=== PATIENT | female | born 1940 | race Caucasian/White ===

== ENCOUNTER → 2023-12-09 09:58 | Outpatient (REF) | payer MEDICARE, OTHER, SELFPAY | LOC: RAD 09:58 | PROVIDERS: ATTENDING PHYSICIAN Nurse Practitioner Family | DX: M25.562 Pain in left knee (principal) | CPT/HCPCS: 73564 ==

== ENCOUNTER 2024-01-04 09:40 | Emergency (ER) | payer MEDICARE, OTHER, SELFPAY ==
[2024-01-04 09:44] VITALS: BP 167/71; BMI 28.3
[2024-01-04 09:45] VITALS: BP 167/71
[2024-01-04 10:00] VITALS: BP 148/63
[2024-01-04 10:01] LABS: % Basophils 0.5 % (0-2); % Eosinophils 0.6 % (0-6); % Immature Granulocytes 0.5 % (0-0.5); % Monocytes 8.4 % (1.7-9.3); Absolute Lymphocytes 1.3 10^3/uL (1.2-3.4); Absolute Monocytes 0.6 10^3/uL (0.1-0.6); Absolute Neutrophils 4.7 10^3/uL (1.4-6.5); Hematocrit 38.9 % (37.0-47.0); Hemoglobin 12.4 g/dL (12.0-16.0); Mean Corp Hgb Conc. 31.9 g/dL (33.0-37.0); Mean Corpuscular Hgb 24.9 pg (27.0-31.0); Mean Corpuscular Volume 78.1 fL (81.0-99.0); Mean Platelet Volume 9.2 fL (7.4-10.4); Nucleated Red Blood Cells % 0 %; Platelet Count 295 10^3/uL (130-400); Red Blood Cell Count 4.98 10^6/uL (4.20-5.40); Red Cell Dist. Width 18.3 % (11.5-14.5); White Blood Cell Count 6.6 10^3/uL (4.8-10.8)
[2024-01-04 10:16] LABS: ALT (SGPT) 14 U/L (0-35); AST (SGOT) 17 U/L (14-36); Albumin 4.5 g/dl (3.5-5.0); Alkaline Phosphatase 48 U/L (38-126); Blood Urea Nitrogen 14 mg/dl (7-17); Calcium 10.2 mg/dl (8.4-10.2); Carbon Dioxide 26 mmol/L (22-30); Chloride 101 mmol/L (98-107); Estimated Creatinine Clearance 57 ml/min; Glucose 166 mg/dl (70-99); Potassium 4.3 mmol/L (3.5-5.1); Sodium 138 mmol/L (135-145); Total Bilirubin 0.5 mg/dl (0.2-1.3); eGFR > 60.00
--- NOTE | 2024-01-04 10:27 | ED.GENMED ---
History of Present Illness
General
Chief Complaint: Weakness
Source: patient
Exam Limitations: none
Time Seen by Provider: 01/04/24 10:05
Travel History
Have you had any contact with someone who has COVID-19?: No
Do you have any symptoms of coronavirus? Fever > 100 degrees, chills, cough, shortness of breath, sore throat, loss of taste or smell, muscle aches, or headache?: No
History of Present Illness
History of Present Illness:
83-year-old female lives by herself presents via EMS with onset of generalized weakness this morning. She went to bed last evening feeling normal. She has history of insulin-dependent diabetes. She has a history of Li's palsy. She states both
legs were not working well this morning. She was forced to use a walker which she usually does not have to. She states she may have a history of prior TIA. She denies chest pain headache abdominal pain nausea or vomiting. She states she does
feel dry. No urinary symptoms. No cough or breath. No other complaints at this time
Past History
Past History
ED Past Medical History: CVA, HTN, NIDDM and Other (Li's palsy)
ED Past Surgical History: Gynecological (Hysterectomy)
Social History
Tobacco: Non-smoker
Alcohol: None
Drug: None
Living: alone
Family History
Family History: Other (reviewed and noncontributory)
Phy Exam
Physical Exam
Physical Exam:
General: Well-appearing female no acute respiratory distress
HEENT: Normocephalic atraumatic mucosa slightly dry neck is supple
Heart: Regular rate and rhythm no murmurs
Lungs: Clear no wheeze or rales
Abdomen: Soft nontender nondistended
Extremities: No cyanosis or edema
Neurologic exam: Alert and oriented x 3 finger-nose [id number] intact. Visual hirsch intact. 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
This is not new per the patient. No dysarthria or aphasia
Course
Orders/Labs/Results
Orders:
Orders
01/04/24 09:50
Electrocardiogram (*1) Urgent
Reason for Study: Other
Other Reason for Exam: Possible Stroke
EKG- Treatment ONCE
01/04/24 09:51
Complete Blood Count/With Diff Urgent
Comprehensive Metabolic Panel Urgent
01/04/24 10:25
0.9% Sodium Chloride 1000 ml [Nss] 1,000 ml IV BOLUS
01/04/24 11:11
Urinalysis Reflex To Culture Urgent
Date Specimen was Collected: 01/04/24
Time Specimen was Collected: 11:10
Urine Microscopic Reflex Cult Urgent
Urine Culture Urgent
CHRIS Source: U
Specimen Description:
Date Specimen was Collected: 01/04/24
Time Specimen was Collected: 11:10
01/04/24 12:50
Case Management Consult ONCE
Case Management Consult: VN/Home Care
PT Consult [Pt Eval And Treat] Urgent
Activity Level: Ambulate
01/04/24 12:51
CefTRIAXone [Rocephin] 1,000 mg IV NOW STA
Abnormal Lab Results
01/04/24 01/04/24
09:51 11:11
MCV 78.1 L fL
(81.0-99.0)
MCH 24.9 L pg
(27.0-31.0)
MCHC 31.9 L g/dL
(33.0-37.0)
RDW 18.3 H %
(11.5-14.5)
Lymphocytes % 19.0 L %
(20.5-51.1)
Glucose 166 H mg/dl
(70-99)
Urine Nitrite (Reflex) Positive A
(Negative)
Leukocyte Esterase Rfl 1+ A
(Negative)
Urine Bacteria (Reflex) Moderate A
(Negative)
Urine Glucose Trace A
(Negative)
01/04/24 09:51
01/04/24 09:51
Vital Signs
Initial and Last Documented VS:
Initial Vital Signs
Temp Pulse Resp BP Pulse Ox
97.5 F 88 18 167/71 98
01/04/24 09:44 01/04/24 09:44 01/04/24 09:44 01/04/24 09:44 01/04/24 09:44
Last Documented Vital Signs
Temp Pulse Resp BP Pulse Ox
97.5 F 86 18 163/81 97
01/04/24 09:44 01/04/24 14:45 01/04/24 14:45 01/04/24 13:06 01/04/24 13:30
MDM/Problems Addressed
Differential Diagnosis Includes:
Patient has generalized weakness without unilateral findings on exam. Do not suspect CVA. Consider electrolyte abnormality versus anemia versus hyperglycemia. Will check labs. Fluids ordered EKG ordered. Urinalysis pending
*Critical Care Note
Total Time (30-74mins, 75-104mins- exclusive of procedures): Not Applicable
Update Note
Update Note:
Patient reevaluated multiple times. She is ambulatory to the bathroom on her own. Seen by physical therapy and case management. Stable for discharge home she was given a dose of Rocephin IV for UTI and will be started on Omnicef at home.
Visiting nurses will set up.
ED Attending Note
-
Portions of this chart may have been created with voice recognition software.� Occasional wrong word or��sound alike� substitutions may have occurred due to the inherent limitations of voice recognition software.
Discharge Plan
Departure
Patient Disposition: Home (Routine Discharge)
Date of Disposition: 01/04/24
Time of Disposition: 14:52
Patient with high blood pressure during this ER visit?: No
Discharge Problem:
Acute UTI
Instructions: Generalized Weakness (DC)
Prescriptions:
New
cefdinir 300 mg capsule
300 mg PO BID Qty: 14 0RF
No Action
metformin 1,000 MG tablet
1,000 mg PO BID
amlodipine 10 MG tablet
10 mg PO DAILY 0RF
aspirin 81 MG tablet,chewable
81 mg PO DAILY 0RF
hydroxyurea 500 mg capsule
500 mg PO MOTUWETHFRSA
valsartan 320 mg tablet
320 mg PO DAILY
rosuvastatin 20 mg tablet
20 mg PO DAILY
metoprolol succinate 100 MG tablet extended release 24 hr
100 mg PO DAILY
insulin glargine [Basaglar KwikPen U-100 Insulin] 100 unit/mL (3 mL) Insulin Pen
15 unit SC HS
Fiasp FlexTouch U-100 Insulin 100 unit/mL (3 mL) Insulin Pen
6 unit SC AC
calcium carbonate [Calcium 500] 500 mg calcium (1,250 mg) Tablet
500 mg PO DAILY
magnesium oxide 500 mg magnesium Tablet
1,000 mg PO DAILY
Referrals:
Max Choudhury MD [Family Provider] -
Interventions
Interventions:
*Risk Screen - Suicide Last Done: 01/04/24 09:44
*General Assessment Last Done: 01/04/24 09:44
*Neglect/Abuse Screening Last Done: 01/04/24 09:44
ED- Fall Risk Assessment Last Done: 01/04/24 09:44
*ED COVID-19 Vaccine History Last Done: 01/04/24 09:44
ED- Cardiac Assessment Last Done: 01/04/24 09:44
ED- Neurological Assessment Last Done: 01/04/24 09:44
ED- Pulmonary Assessment Last Done: 01/04/24 09:44
Discharge Date and Time
Print Language: DANISH
[2024-01-04] MEDS: NSS 1000 IV (10:42)
[2024-01-04 11:12] VITALS: BP 174/75
[2024-01-04 11:22] LABS: Urine Albumin Negative (Neg - Trace); Urine Bilirubin Negative (Negative); Urine Character Clear (Clear); Urine Color Yellow; Urine Glucose Trace (Negative); Urine Ketone Negative (Negative); Urine Leukocyte 1+ (Negative); Urine Nitrite Positive (Negative); Urine Occult Blood Negative (Negative); Urine Urobilinogen Negative (Neg - 1+); Urine pH 6.5 (5.0-9.0)
[2024-01-04 12:22] LABS: Urine Red Blood Cell 0-2 /HPF (0-2)
[2024-01-04 12:23] LABS: Urine Bacteria Moderate (Negative)
[2024-01-04] MEDS: ROCEPHIN 1000 MG IV (13:05)
[2024-01-04 13:06] VITALS: BP 163/81
--- NOTE | 2024-01-04 14:32 | CM ---
Patient seen at bedside with physician. Patient friend also at bedside. Per friend she will escort patient home and get her settled. Patient reviewed PAC data and requested referral to [facility]. CM updated liaison and await review for acceptance.
Patient lives in a private home, one story. Patient has a walker, no home O2 and is still driving. [facility] PCP is Dr. Choudhury and [facility] in [place] is the pharmacy of choice. CM will continue to follow for discharge planning needs.
Plan; home with [facility]; pending acceptance.
--- NOTE | 2024-01-04 16:37 | VNURNOTE ---
[facility] referral completed in [facility] after review of chart.
Call to patient to discuss and no answer.
== END 2024-01-04 15:15 | disposition home or self-care (01) ==
LOC: EMR 09:40
PROVIDERS: Physician Assistant; EMERGENCY PHYSICIAN Emergency Medicine; FAMILY PHYSICIAN Internal Medicine Geriatric Medicine
DX: N39.0 Urinary tract infection, site not specified (principal); R53.1 Weakness; I10 Essential (primary) hypertension; E11.9 Type 2 diabetes mellitus without complications; G51.0 Bell's palsy; Z86.73 Personal history of transient ischemic attack (TIA), and cerebral infarction without residual deficits; Z79.4 Long term (current) use of insulin; Z79.82 Long term (current) use of aspirin
CPT/HCPCS: 96374; 96361; 99284; 80053; 81003; 81015; 85025; 87077; 87086; 87186; 93005

== ENCOUNTER 2024-01-07 14:27 | Inpatient (IN) | payer MEDICARE, OTHER, SELFPAY ==
[2024-01-06 09:26] VITALS: BP 166/89
[2024-01-06 10:48] VITALS: BMI 28.0
[2024-01-06 10:54] LABS: % Basophils 0.6 % (0-2); % Immature Granulocytes 0.2 % (0-0.5); % Lymphocytes 17.7 % (20.5-51.1); % Monocytes 6.7 % (1.7-9.3); % Neutrophils 73.8 % (42.2-75.2); Absolute Basophils 0.1 10^3/uL (0-0.2); Absolute Eosinophils 0.1 10^3/uL (0-0.7); Absolute Lymphocytes 1.7 10^3/uL (1.2-3.4); Absolute Monocytes 0.6 10^3/uL (0.1-0.6); Absolute Neutrophils 6.9 10^3/uL (1.4-6.5); Hematocrit 38.5 % (37.0-47.0); Mean Corp Hgb Conc. 31.2 g/dL (33.0-37.0); Mean Corpuscular Volume 80.2 fL (81.0-99.0); Mean Platelet Volume 9.6 fL (7.4-10.4); Nucleated Red Blood Cells % 0 %; Platelet Count 332 10^3/uL (130-400); Red Cell Dist. Width 18.4 % (11.5-14.5); White Blood Cell Count 9.3 10^3/uL (4.8-10.8)
[2024-01-06 11:06] LABS: ALT (SGPT) 16 U/L (0-35); AST (SGOT) 23 U/L (14-36); Albumin 4.5 g/dl (3.5-5.0); Alkaline Phosphatase 49 U/L (38-126); Blood Urea Nitrogen 15 mg/dl (7-17); Calcium 10.1 mg/dl (8.4-10.2); Carbon Dioxide 22 mmol/L (22-30); Chloride 101 mmol/L (98-107); Estimated Creatinine Clearance 58 ml/min; Glucose 124 mg/dl (70-99); Potassium 4.1 mmol/L (3.5-5.1); Sodium 135 mmol/L (135-145); Total Bilirubin 0.6 mg/dl (0.2-1.3); Total Protein 6.9 g/dl (6.3-8.2); eGFR > 60.00
[2024-01-06 11:12] LABS: Lactic Acid 2.1 mmol/L (0.7-2.0)
[2024-01-06 11:43] VITALS: BP 151/63
--- NOTE | 2024-01-06 12:29 | ED.GENMED ---
History of Present Illness
General
Chief Complaint: Weakness
Time Seen by Provider: 01/06/24 10:38
Travel History
Have you had any contact with someone who has COVID-19?: No
Do you have any symptoms of coronavirus? Fever > 100 degrees, chills, cough, shortness of breath, sore throat, loss of taste or smell, muscle aches, or headache?: No
History of Present Illness
History of Present Illness:
HPI: Patient presents with increasing gait dysfunction. She was seen here in our ED 2 days ago. Her symptoms have been worsening over the past 4 weeks. Even though she has a walker, she has been doing poorly at home. She lives by herself.
EXAM:
GENERAL: Well appearing in no distress
HEENT: Moist oral mucosa
CARDIOVASCULAR: No murmurs, normal heart rate, regular rhythm, No chest wall tenderness
PULMONARY: No respiratory distress, breath sounds are clear and equal
ABDOMEN: Soft with no peritoneal signs, no tenderness
NEUROLOGIC: Very good strength in the upper extremities and the right lower extremity. There is 4+ out of 5 strength in the left lower extremity however she does appear to have some coordination to with [id number] testing. There is left facial
droop which is chronic related to history of Li's palsy
PSYCHIATRIC: Appropriate mental status, normal insight and judgement
EXTREMITIES: Nontender, no edema, moves all extremities equally
SKIN: No rash, no lesions
TIME OF INITIAL ENCOUNTER: 11 AM
NUMBER AND COMPLEXITY OF PROBLEMS ADDRESSED AT THE ENCOUNTER
� Chronic conditions affecting care: Has had Li's palsy
� Acute Exacerbation and/or Progression of Chronic Illness: This is an acute problem
� Differential Diagnosis includes: CVA, progressive functional decline, failure to thrive, anemia
AMOUNT AND/OR COMPLEXITY OF DATA TO BE REVIEWED AND ANALYZED
� I performed an independent evaluation of and my interpretation is:
EKG:
CT: Small old lacunar infarcts noted but no acute abnormality
X-rays:
Laboratory Studies: White count normal, hemoglobin 12.0, chemistries unremarkable other than blood sugar of 124
Other:
� Review of other/old records: X-ray from the other day of the left knee was relatively unremarkable
� Clinical information was obtained by an independent historian:
� Prescriptions/Medications Considered but not given:
� Further testing considered but not performed:
RISK OF COMPLICATIONS AND/OR MORBIDITY OR MORTALITY OF PATIENT MANAGEMENT
� Social determinants of health affecting care: Lives by herself at home
� Discussion with other providers: I spoke to physical therapy�they evaluated patient and recommends patient be at a rehab facility. I then spoke to care management�Linda states she cannot place from the ER. Hospitalist for
admission
� Escalation of care including admission/observation vs risk of discharge considered: The patient has been doing poorly as an outpatient. She is already been in the ED once a couple days ago.
Past History
Past History
ED Past Medical History: CVA, HTN, NIDDM and Other (Li's palsy)
ED Past Surgical History: Gynecological (Hysterectomy)
Social History
Tobacco: Non-smoker
Alcohol: None
Drug: None
Living: alone
Family History
Family History: Other (reviewed and noncontributory)
Phy Exam
Physical Exam
Physical Exam:
See HPI
Course
Orders/Labs/Results
Orders:
Orders
01/06/24 10:46
Complete Blood Count/With Diff Urgent
Comprehensive Metabolic Panel Urgent
Lactate Level [Lactic Acid] Q4H
Blood Culture Q30M
CHRIS Source: Blood/Venous
Specimen Description:
01/06/24 11:14
CT Head W/o Iv Contrast Urgent
Comment:
Reason For Exam: LLE weak, gait dysfunc
PT Consult [Pt Eval And Treat] Urgent
Activity Level: Ambulate
01/06/24 11:15
Blood Culture Q30M
CHRIS Source: Blood/Venous
Specimen Description:
01/06/24 12:31
Electrocardiogram (*1) Urgent
Reason for Study: TIA/Stroke
EKG- Treatment ONCE
01/06/24 13:47
Case Management Consult ONCE
Case Management Consult: Discharge Planning
01/06/24 14:45
Lactate Level [Lactic Acid] Q4H
Abnormal Lab Results
01/06/24
10:46
MCV 80.2 L fL
(81.0-99.0)
MCH 25.0 L pg
(27.0-31.0)
MCHC 31.2 L g/dL
(33.0-37.0)
RDW 18.4 H %
(11.5-14.5)
Absolute Neuts (auto) 6.9 H 10^3/uL
(1.4-6.5)
Lymphocytes % 17.7 L %
(20.5-51.1)
Glucose 124 H mg/dl
(70-99)
Lactic Acid 2.1 H mmol/L
(0.7-2.0)
01/06/24 10:46
01/06/24 10:46
Vital Signs
Initial and Last Documented VS:
Initial Vital Signs
Temp Pulse Resp BP Pulse Ox
98.4 F 92 16 166/89 98
01/06/24 09:26 01/06/24 09:26 01/06/24 09:26 01/06/24 09:26 01/06/24 09:26
Last Documented Vital Signs
Temp Pulse Resp BP Pulse Ox
98.4 F 86 16 151/63 99
01/06/24 09:26 01/06/24 11:43 01/06/24 11:43 01/06/24 11:43 01/06/24 11:44
*Critical Care Note
Total Time (30-74mins, 75-104mins- exclusive of procedures): Not Applicable
ED Attending Note
-
Portions of this chart may have been created with voice recognition software.� Occasional wrong word or��sound alike� substitutions may have occurred due to the inherent limitations of voice recognition software.
Discharge Plan
Departure
Prescriptions:
No Action
metformin 1,000 MG tablet
1,000 mg PO BID
amlodipine 10 MG tablet
10 mg PO DAILY 0RF
aspirin 81 MG tablet,chewable
81 mg PO DAILY 0RF
hydroxyurea 500 mg capsule
500 mg PO MOTUWETHFRSA
valsartan 320 mg tablet
320 mg PO DAILY
rosuvastatin 20 mg tablet
20 mg PO DAILY
metoprolol succinate 100 MG tablet extended release 24 hr
100 mg PO DAILY
insulin glargine [Basaglar KwikPen U-100 Insulin] 100 unit/mL (3 mL) Insulin Pen
15 unit SC HS
Fiasp FlexTouch U-100 Insulin 100 unit/mL (3 mL) Insulin Pen
6 unit SC AC
calcium carbonate [Calcium 500] 500 mg calcium (1,250 mg) Tablet
500 mg PO DAILY
magnesium oxide 500 mg magnesium Tablet
1,000 mg PO DAILY
cefdinir 300 mg capsule
300 mg PO BID Qty: 14 0RF
Referrals:
Max Choudhury MD [Family Provider] -
Interventions
Interventions:
*Risk Screen - Suicide Last Done: 01/06/24 10:48
*General Assessment Last Done: 01/06/24 10:48
*Neglect/Abuse Screening Last Done: 01/06/24 10:48
*ED COVID-19 Vaccine History Last Done: 01/06/24 09:26
ED- Cardiac Assessment Last Done: 01/06/24 11:44
ED- Neurological Assessment Last Done: 01/06/24 11:44
ED- Pulmonary Assessment Last Done: 01/06/24 11:44
Discharge Date and Time
Print Language: BULGARIAN
[2024-01-06 12:55] VITALS: BP 160/69; BP 166/73; PULSE 97; O2SAT 97
--- NOTE | 2024-01-06 14:15 | CM ---
CM reviewed medical records. CM spoke with [facility] entry level sales representative and confirmed patient would be eligible for [employer] Medicare Waiver. CM is unable to place from the emergency room at this time. CM updated ED physician.
--- NOTE | 2024-01-06 14:19 | HPS.HSE ---
Addendum entered and electronically signed by Simon Marks MD 01/06/24 15:54:
I saw and examined the patient.
The CHAIR UPHOLSTERER or PA's note was reviewed and I agree with the note.
Comment:
83 years old female presented with gait dysfunction. She described left lower extremity weakness. This started 4 weeks ago after experiencing left knee pain. She was given a steroid course and physical therapy but she did not do physical therapy.
Her pain subsided but she continued to have weakness. She had a fall last night and hit her back. She also complains of intermittent weakness of left upper extremity. Sometimes tingling in both hands because of the neuropathy. She never had
images of her cervical spine. No fever or chills. She was recently diagnosed with urinary tract infection was given cefdinir treatment after an ER visit for weakness.
Physical Exam:
General: Well-appearing female no acute respiratory distress
HEENT: Normocephalic atraumatic mucosa slightly dry neck is supple
Heart: Regular rate and rhythm no murmurs
Lungs: Clear no wheeze or rales
Abdomen: Soft nontender nondistended
Extremities: No cyanosis or edema
Neurologic exam: Alert and oriented x 3 finger-nose acif-zh-sqta intact. Visual hirsch intact. 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
This is not new per the patient. No dysarthria or aphasia
Psych: calm
# Left-sided weakness mostly left lower extremity
Rule out stroke/spinal pathology
Will do MRI of the head and cervical spine since patient reports intermittent weakness of left upper extremity, duration of symptoms around 4-weeks no specific trauma or injury when it started.
No fever. No leukocytosis.
Head scan showed no acute intracranial abnormalities/small bilateral old lacunar infarcts.
Check vitamin B12.
Check inflammatory markers
NIH stroke protocol
Check lipid panel
Continue to control blood pressure, management of diabetes. Continue with aspirin and statin.
PT/OT
Will follow-up with imaging studies results
# Recent UTI. Positive lactic acidosis
Patient is not septic or toxic. Could be dehydrated. Agree with empiric antibiotic and blood culture
# Diabetes, check hemoglobin A1c. Avoid hypoglycemia. Continue with insulin sign scale.
#Primary hypertension
# Hyperlipidemia
Total time spent to see the patient, examine the patient on the floor, review data and lab results, discuss treatment plan with patient, ER doctor, nursing staff around 75 minutes
Original Note:
Family Physician
-
Family Physician: Max Chouhdury
Chief Complaint
-
Left lower extremities pain
History of Present Illness
83-year-old with past medical history for hypertension, hyperlipidemia, diabetes, CVA presented to us with left knee pain, left lower extremity is weakness for past 4 weeks. she woke up with left knee pain. she had x ray done with no acute finding.
she was placed on prednisone and recommended. she finished prednisone. she couldn't do PT as she cannot walk from parking LOT. last night she fell on her back due to left LE weakness. she stated she has not strength in her leg. she was evaluated in
ER on 01/03. prescribed cefdinir for UTI and sent home. Patient is still with trouble walking and weakness. Patient denied any headache, dizziness, syncopal episode. Patient denied any fever, chills, chest pain, short of breath. Patient denied
abdominal pain, nausea, vomiting, diarrhea. Patient denied dysuria, hematuria.
Head CT negative for acute findings
Patient was evaluated by PT in the ER. Recommended acute rehab. Admitting for further management
Medical History
Past Medical History
Past Medical History: Reports Other
Additional Past Medical History:
Type 2 diabetes
Diabetic peripheral neuropathy
History was palsy
Hypertension
Hyperlipidemia
TIA
Past Surgical History: Reports Other
Social History
Tobacco: Non-smoker
Alcohol: None
Drug: None
Personal: Single
Living: Alone
Family History
Family History: Not pertinent
Allergies / Home Medications
Allergies reflects when Allergies were last updated in [facility].
Home Medications with original date entered in [facility]
Allergy/Medication List:
Allergies
Allergy/AdvReac Type Severity Reaction Status Date / Time
No Known Allergies Allergy Verified 01/06/24 09:28
Home Medications
metformin 1,000 mg tablet 1,000 mg PO BID Diabetes 06/03/19
amlodipine 10 mg tablet 10 mg PO DAILY 06/07/19
aspirin 81 mg chewable tablet 81 mg PO DAILY 06/07/19
hydroxyurea 500 mg capsule 500 mg PO MOTUWETHFRSA 05/01/22
metoprolol succinate 100 mg tablet,extended release 24 hr 100 mg PO DAILY Blood pressure 05/01/22
rosuvastatin 20 mg tablet 20 mg PO DAILY High cholesterol 05/01/22
valsartan 320 mg tablet 320 mg PO DAILY Blood pressure 05/01/22
calcium carbonate 500 mg PO DAILY 01/04/24
cefdinir 300 mg capsule 300 mg PO BID #14 caps 01/04/24
insulin aspart (niacinamide)(U-100) 100 unit/mL(3 mL) subcutaneous pen (Fiasp FlexTouch U-100 Insulin) 6 unit SC AC 01/04/24
insulin glargine 100 unit/mL (3 mL) subcutaneous pen (Basaglar KwikPen U-100 Insulin) 15 unit SC HS 01/04/24
magnesium oxide 1,000 mg PO DAILY 01/04/24
Review of Systems
-
Constitutional: Reports No Symptoms
EENT: Reports No Symptoms
Respiratory: Reports No Symptoms
Cardiac: Reports No Symptoms
Abdomen/GI: Reports No Symptoms
: Reports No Symptoms
Musculoskeletal: Reports Other (Left knee pain and left lower extremities weakness)
Skin: Reports No Symptoms
Neurological: Reports No Symptoms
Endocrine: Reports No Symptoms
Hematologic/Lymphatic: Reports No Symptoms
Psych: Reports No Symptoms
Physical Exam
Vital Signs
Vital Signs
Temp Pulse Resp BP Pulse Ox
98.4 F 86 16 151/63 99
01/06/24 09:26 01/06/24 11:43 01/06/24 11:43 01/06/24 11:43 01/06/24 11:44
Physical Exam
General: Well Developed, Well Nourished and No Apparent Distress
HEENT: NormoCephalic, Moist mucous membranes and Atraumatic
Respiratory: Clear
Cardiac: S1/S2 and Regular Rhythm; No Murmur or Rub
GI: Soft, Non Tender, Non Distended and Normal Bowel Sounds; No Organomegaly
Rectal: Deferred by Provider
Musculoskeletal: No Clubbing, No Cyanosis and No Edema
Skin: No Rash
Neuro: AO x 3 and Nonfocal/grossly intact
Psych: Calm
Laboratory Results
-
01/06/24 10:46
01/06/24 10:46
Laboratory Results
Lactic Acid 2.1 mmol/L (0.7-2.0) H 01/06/24 10:46
Total Bilirubin 0.6 mg/dl (0.2-1.3) 01/06/24 10:46
AST 23 U/L (14-36) 01/06/24 10:46
ALT 16 U/L (0-35) 01/06/24 10:46
Alkaline Phosphatase 49 U/L (38-126) 01/06/24 10:46
Data Reviewed
-
CT Scan: Report Reviewed by me
Lab Data: Labs Reviewed by me
Impression/Plan
-
# Gait dysfunction/left knee pain, left lower extremity weakness
-CT head negative
-Left knee x-ray with impression of No acute osseous or articular abnormalities. Questionable small suprapatellar joint effusion.Mild loss of joint space within the medial tibiofemoral compartment.Scattered vascular calcifications.
-PT/OT consulted
-obtain MRI of head and cervical spine
# Essential hypertension
-Norvasc continued
-Metoprolol continued
-Valsartan continued
# Hyperlipidemia
-Statin continued
# Type 2 diabetes
-Sliding scale
-6 units aspart with meals
-15 units Lantus at bedtime
-Metformin continued
# Urinary tract infection
-On cefdinir
-urine culture with gram negative bacilli.
# DVT prophylaxis
-Lovenox subcu
# CODE STATUS
DNR
--- NOTE | 2024-01-06 16:25 | CM ---
CM met with patient. COnfirmed demographics. LINDSAY letter given.
Patient lives alone and stated that she is otherwise independent. She has been driving herself. Patient's son lives 5 hours away, but she does visit often. Patient is active with her PCP. Patient has a history placement at [facility]. CM advised
patient that she was eligible for [employer] Waiver program. She would be agreeable to [facility] and [facility]. CM sent referrals via [facility].
[2024-01-06 17:34] VITALS: BMI 28.7
[2024-01-06 17:40] VITALS: BP 186/75
[2024-01-06 17:55] LABS: Glucose - Point of Care 146 mg/dl (70-99)
[2024-01-06] MEDS: NOVOLOG FLEXPEN-LOW RESISTANCE SC (18:18)
[2024-01-06] MEDS: LOVENOX 40 MG SC (18:18)
[2024-01-06] MEDS: OMNICEF 300 MG PO (21:00)
[2024-01-06 21:44] LABS: Glucose - Point of Care 241 mg/dl (70-99)
[2024-01-06] MEDS: LANTUS 0.149999999999999994 UNITS SC (22:50)
[2024-01-06 23:00] VITALS: BP 144/70
[2024-01-07 07:00] VITALS: BP 163/78
[2024-01-07 07:28] LABS: Hematocrit 33.7 % (37.0-47.0); Mean Corp Hgb Conc. 32.6 g/dL (33.0-37.0); Mean Corpuscular Hgb 25.3 pg (27.0-31.0); Mean Corpuscular Volume 77.5 fL (81.0-99.0); Mean Platelet Volume 9.6 fL (7.4-10.4); Platelet Count 291 10^3/uL (130-400); Red Blood Cell Count 4.35 10^6/uL (4.20-5.40); Red Cell Dist. Width 18.2 % (11.5-14.5); White Blood Cell Count 7.6 10^3/uL (4.8-10.8)
[2024-01-07 07:35] LABS: Glucose - Point of Care 161 mg/dl (70-99)
[2024-01-07 07:44] LABS: Blood Urea Nitrogen 11 mg/dl (7-17); Calcium 8.7 mg/dl (8.4-10.2); Carbon Dioxide 23 mmol/L (22-30); Chloride 102 mmol/L (98-107); Estimated Creatinine Clearance 67 ml/min; Glucose 153 mg/dl (70-99); Sodium 134 mmol/L (135-145); eGFR > 60.00
[2024-01-07] MEDS: NOVOLOG FLEXPEN-LOW RESISTANCE 1 UNITS SC (09:19)
[2024-01-07] MEDS: DIOVAN 320 MG PO (09:19)
[2024-01-07] MEDS: OMNICEF 300 MG PO ×2 (09:19→19:52)
[2024-01-07] MEDS: NORVASC 10 MG PO (09:20)
[2024-01-07] MEDS: CRESTOR 20 MG PO (09:20)
[2024-01-07] MEDS: GLUCOPHAGE 1000 MG PO ×2 (09:20→17:49)
[2024-01-07] MEDS: MAGNESIUM OXIDE 1000 MG PO (09:21)
[2024-01-07] MEDS: LIDOCAINE 4% PATCH TOPICAL (09:21)
[2024-01-07] MEDS: LOW STRENGTH ASPIRIN 81 MG PO (09:21)
[2024-01-07] MEDS: TOPROL XL 100 MG PO (09:22)
[2024-01-07] MEDS: HYDREA 500 MG PO (09:40)
[2024-01-07 11:45] LABS: Glucose - Point of Care 256 mg/dl (70-99)
[2024-01-07 12:11] LABS: Glycohemoglobin (HgbA1c) 8.4 % (4.0-5.6)
[2024-01-07] MEDS: NOVOLOG FLEXPEN-LOW RESISTANCE 3 UNITS SC (12:23)
--- NOTE | 2024-01-07 12:25 | W.PN.HOSP.TC ---
Addendum entered and electronically signed by Simon Marks MD 01/07/24 15:09:
Addendum
MRI is reviewed with radiologist
d/w neurology, help appreciated
Add Plavix, c/w statin
check Lipid in am, vitamin B12
Reconsult PT/OT
Consult speech
NIH Stroke
End
Original Note:
Today's Communication/Plan
-
.
Assessment / Plan
Assessment / Plan
Physical Exam:
General: Well-appearing female no acute respiratory distress
HEENT: Normocephalic atraumatic mucosa slightly dry neck is supple
Heart: Regular rate and rhythm no murmurs
Lungs: Clear no wheeze or rales
Abdomen: Soft nontender nondistended
Extremities: No cyanosis or edema
Neurologic exam: Alert and oriented x 3 finger-nose [id number]-[id number] intact. Visual hirsch intact. 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
This is not new per the patient. No dysarthria or aphasia
Psych: calm
# Left-sided weakness mostly left lower extremity
She reports limited range of movement of RUE
Nothing wrong with LUE
No pain in left leg
No chest pain
She reports her Li's palsy weakness is worse today
On exam: no changes from yesterday
Rule out stroke/spinal pathology
MRI of the head and cervical spine since patient reports intermittent weakness of left upper extremity, duration of symptoms around 4-weeks no specific trauma or injury when it started.
No fever. No leukocytosis.
Head scan showed no acute intracranial abnormalities/small bilateral old lacunar infarcts.
Check vitamin B12.
NIH stroke protocol if positive MRI for acute stroke
Check lipid panel
Continue to control blood pressure, management of diabetes. Continue with aspirin and statin.
PT/OT
Will follow-up with imaging studies results
# Recent UTI. Positive lactic acidosis
Patient is not septic or toxic. Could be dehydrated. Agree with empiric antibiotic and blood culture
# Hyponatremia, mild
Hx of Chronic hyponatremia
# Recent UTI
c/w Cefdinir, susceptibility is reviewed.
# Diabetes, check hemoglobin A1c. Avoid hypoglycemia. Continue with insulin sign scale.
#Primary hypertension
Poorly controlled
will add PRN one time Nifedipine
# Hyperlipidemia
Check lipid panel
#Bundle branch block, right
# DVT prophylaxis
-Lovenox subcu
# CODE STATUS
DNR
Total time spent to see the patient, examine the patient on the floor, review data and lab results, discuss treatment plan with patient, nursing staff around 55 minutes
Anticipated Discharge: 24 - 48 hours
Subjective/Interval History
-
Date of Service: January 07, 2024
She reports limited range of movement of RUE
Nothing wrong with LUE
No pain in left leg
No chest pain
She reports her Blell's palsy weakness is worse today
Objective Data
-
Labs:
Laboratory Results
01/07/24
07:02
WBC 7.6
Hgb 11.0 L
Hct 33.7 L
Plt Count 291
Sodium 134 L
Potassium 4.0
Chloride 102
Carbon Dioxide 23
BUN 11
Creatinine 0.6
Glucose 153 H
Calcium 8.7
Vital Signs:
Vital Signs
Temp Pulse Resp BP Pulse Ox
98.2 F 77 18 163/78 99
01/07/24 07:00 01/07/24 09:22 01/07/24 07:00 01/07/24 09:22 01/07/24 07:00
I&O
01/06/24 01/07/24 01/08/24
06:59 06:59 06:59
Output Total 480 / 480
Balance -480 / -480
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
[2024-01-07 14:13] LABS: Erythrocyte Sed Rate 15 mm/hour (0-20)
[2024-01-07 14:57] LABS: HDL Cholesterol 33 mg/dl; LDL Cholesterol, Calculated 20 mg/dl; Total Cholesterol 79 mg/dl (50-199); Triglyceride 133 mg/dl (10-149); Very Low Density Lipoprotein 26 mg/dl (0-30)
[2024-01-07 15:00] VITALS: BP 137/70
[2024-01-07 15:03] LABS: TSH Reflex To Free T4 2.59 uIU/ml (0.47-4.68)
[2024-01-07 15:07] LABS: Ferritin 8.6 ng/ml (11.1-264.0)
[2024-01-07 15:39] LABS: Folate > 20.0 ng/ml (2.76-20); Vitamin B12 858 pg/ml (239-931)
--- NOTE | 2024-01-07 16:12 | PTOTSP ---
Addendum entered and electronically signed by ST Dennise 01/07/24 16:14:
Pt also with mild dysarthria.
Original Note:
ST Acute Care Evaluation
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 Pt also presents with mild oropharyngeal dysphagia.
Recommendations:
- Continue with REGULAR SOLIDS and THIN LIQUIDS with meds as tolerated.
- Aspiration precautions: SINGLE SIPS ONLY; small bites; use tongue sweep for L buccal clearance; alternate liquids and solids; reduce distractions; avoid speaking while eating/drinking.
- ADULT DAY CARE WORKER will continue to follow while in house to ensure pt is consuming the safest and least restrictive diet consistencies, as well as determine whether or not pt would benefit from an instrumental swallow study prior to discharge.
- Pt would benefit from ADULT DAY CARE WORKER services upon d/c at the HOME HEALTH level of care.
[2024-01-07] MEDS: PLAVIX 75 MG PO (16:25)
[2024-01-07 17:18] LABS: Glucose - Point of Care 231 mg/dl (70-99)
[2024-01-07] MEDS: LOVENOX 40 MG SC (17:49)
[2024-01-07] MEDS: NOVOLOG FLEXPEN-LOW RESISTANCE 2 UNITS SC (17:49)
[2024-01-07] MEDS: NOVOLOG FLEXPEN 6 UNITS SC (17:50)
[2024-01-07 19:37] VITALS: BP 149/74
[2024-01-07 21:11] LABS: Glucose - Point of Care 178 mg/dl (70-99)
[2024-01-07] MEDS: LANTUS 0.149999999999999994 UNITS SC (23:00)
[2024-01-07 23:05] VITALS: BP 140/71
[2024-01-08 03:14] VITALS: BP 152/75
[2024-01-08 07:16] LABS: Hematocrit 35.3 % (37.0-47.0); Hemoglobin 11.4 g/dL (12.0-16.0); Mean Corp Hgb Conc. 32.3 g/dL (33.0-37.0); Mean Corpuscular Hgb 25.3 pg (27.0-31.0); Mean Corpuscular Volume 78.3 fL (81.0-99.0); Mean Platelet Volume 9.7 fL (7.4-10.4); Platelet Count 326 10^3/uL (130-400); Red Blood Cell Count 4.51 10^6/uL (4.20-5.40); Red Cell Dist. Width 18.2 % (11.5-14.5); White Blood Cell Count 7.1 10^3/uL (4.8-10.8)
[2024-01-08 07:43] LABS: Blood Urea Nitrogen 13 mg/dl (7-17); Calcium 9.4 mg/dl (8.4-10.2); Carbon Dioxide 22 mmol/L (22-30); Chloride 102 mmol/L (98-107); Estimated Creatinine Clearance 57 ml/min; Glucose 184 mg/dl (70-99); Potassium 4.3 mmol/L (3.5-5.1); Sodium 134 mmol/L (135-145); eGFR > 60.00
[2024-01-08 07:45] LABS: Glucose - Point of Care 190 mg/dl (70-99)
[2024-01-08 08:00] VITALS: BP 178/88; BMI 28.8
[2024-01-08] MEDS: DIOVAN 320 MG PO (08:22)
[2024-01-08] MEDS: LOW STRENGTH ASPIRIN 81 MG PO (08:23)
[2024-01-08] MEDS: PLAVIX 75 MG PO (08:23)
[2024-01-08] MEDS: CRESTOR 20 MG PO (08:23)
[2024-01-08] MEDS: OMNICEF 300 MG PO ×2 (08:23→21:00)
[2024-01-08] MEDS: MAGNESIUM OXIDE 1000 MG PO (08:23)
[2024-01-08] MEDS: TOPROL XL 100 MG PO (08:23)
[2024-01-08] MEDS: GLUCOPHAGE 1000 MG PO ×2 (08:24→17:47)
[2024-01-08] MEDS: NOVOLOG FLEXPEN-LOW RESISTANCE 1 UNITS SC (08:24)
[2024-01-08] MEDS: LIDOCAINE 4% PATCH TOPICAL ×2 (08:24→16:22)
[2024-01-08] MEDS: NOVOLOG FLEXPEN 6 UNITS SC ×3 (08:24→17:46)
[2024-01-08] MEDS: NORVASC 10 MG PO (08:25)
--- NOTE | 2024-01-08 10:03 | W.PN.HOSP.TC ---
Today's Communication/Plan
-
.
Assessment / Plan
Assessment / Plan
Physical Exam:
General: Well-appearing female no acute respiratory distress
HEENT: Normocephalic atraumatic mucosa slightly dry neck is supple
Heart: Regular rate and rhythm no murmurs
Lungs: Clear no wheeze or rales
Abdomen: Soft nontender nondistended
Extremities: No cyanosis or edema
Neurologic exam: Alert and oriented x 3 finger-nose tcep-xy-lwrn intact. Visual hirsch intact. 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
This is not new per the patient. No dysarthria or aphasia
Psych: calm
# Acute/subacute right paramedian pontine ischemic stroke. Left-sided weakness mostly left lower extremity
She denies worsening weakness. She feels her speech is better today.
c/w NIH stroke
Check echo
c/w Crestor, dual anti-plt therapy for 21 days then c/w Plavix. She was on aspirin
LDL is 20, no need to change her Crestor dose
c/w PT/OT
Goal of normotensive now
Neurology mentioned in note ( Recheck MRA of head to determine if the demonstrated cavernous sinus protrusion has significantly changed in size), will d/w Dr Lucio. Will order is he wants it as Inpt.
Appreciate neurology help
# Recent UTI. Uncomplicated. Will dc Cefdinir after today ( finished 5 days course). Positive lactic acidosis
Patient is not septic or toxic. Blood culture no growth
# Lactic acidosis, likely related to dehydration.
# Hyponatremia, mild
Hx of Chronic hyponatremia
# Diabetes, poorly controlled
Hemoglobin A1c 8.4 . Avoid hypoglycemia. Continue with insulin sign scale. Increase dose of Lantus.
#Primary hypertension
Poorly controlled
will add PRN hydralazine. Plan to stop Amlodipine, start on Nifedipine
# Hyperlipidemia
Check lipid panel
#Bundle branch block, right
# DVT prophylaxis
-Lovenox subcu
# CODE STATUS
DNR
Total time spent to see the patient, examine the patient on the floor, review data and lab results, discuss treatment plan with patient, nursing staff around 57 minutes
Anticipated Discharge: 24 - 48 hours
Subjective/Interval History
-
Date of Service: January 08, 2024
She feels well this morning
No worsening weakness on left side
No chest pain, no sob
Objective Data
-
Labs:
Laboratory Results
01/08/24
06:39
WBC 7.1
Hgb 11.4 L
Hct 35.3 L
Plt Count 326
Sodium 134 L
Potassium 4.3
Chloride 102
Carbon Dioxide 22
BUN 13
Creatinine 0.7
Glucose 184 H
Calcium 9.4
Vital Signs:
Vital Signs
Temp Pulse Resp BP Pulse Ox
98.4 F 94 20 178/88 96
01/08/24 08:00 01/08/24 08:25 01/08/24 08:00 01/08/24 08:25 01/08/24 08:00
I&O
01/07/24 01/08/24 01/09/24
06:59 06:59 06:59
Intake Total 900 / 900
Output Total 480 / 480 1050 / 1050
Balance -480 / -480 -150 / -150
[2024-01-08 11:00] VITALS: BP 131/64
[2024-01-08 13:34] LABS: Glucose - Point of Care 137 mg/dl (70-99)
[2024-01-08] MEDS: NOVOLOG FLEXPEN-LOW RESISTANCE SC (13:35)
[2024-01-08 15:00] VITALS: BP 135/110
[2024-01-08 17:11] LABS: Glucose - Point of Care 250 mg/dl (70-99)
[2024-01-08] MEDS: LOVENOX 40 MG SC (17:47)
[2024-01-08] MEDS: NOVOLOG FLEXPEN-LOW RESISTANCE 3 UNITS SC (17:47)
--- NOTE | 2024-01-08 17:49 | PTOTSP ---
ST Re-Evaluation/Follow-Up
Pt continues to present with mild oropharyngeal dysphagia, mild dysarthria, and mild cognitive linguistic impairment.
Recommendations:
- Continue with skilled RN POOL services for oropharyngeal dysphagia, dysarthria, and cognitive linguistic impairment while in the hospital.
- Continue with aspiration precautions: HOB upright, small single bites/sips, slow intake rate.
- Continue with skilled RN POOL services at d/c at SNF level of care.
[2024-01-08 19:32] VITALS: BP 149/63
[2024-01-08 22:11] LABS: Glucose - Point of Care 175 mg/dl (70-99)
[2024-01-08] MEDS: LANTUS 0.220000000000000001 UNITS SC (22:11)
[2024-01-08 23:33] VITALS: BP 148/68
[2024-01-09 03:04] VITALS: BP 127/67
[2024-01-09 07:05] VITALS: BP 147/74
--- NOTE | 2024-01-09 08:18 | W.PN.NEURO.1 ---
Addendum entered and electronically signed by Lonnie Ortega MD 01/09/24 14:41:
I saw and evaluate the patient I reviewed note by Halle Ibanez agree the findings the following comments:
83-year-old woman presenting to the hospital with onset in the past couple of weeks of abrupt change in gait as well as some mild left-sided weakness.
MRI brain shows severe ischemic small vessel disease throughout both hemispheres of the brain as well as an acute stroke in the right moon.
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
Recommendations-
DAPT therapy for 21 days and then stop aspirin and continue clopidogrel
Continue rosuvastatin 20 mg daily
PT OT speech therapy evaluations
Continue to treat diabetes
Minimize sedating medications
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
Original Note:
Documented by User: Halle Dutta NP 01/09/24 12:29
Today's Communication / Plan
-
.
Neuro Assessment/Plan
Assessment
IMPRESSIONS/RECOMMENDATIONS:
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
With MRI findings of acute/subacute right paramedian pontine ischemic lesion. Etiology likely small vessel disease. Additionally demonstrated was leukomalacia with a prior one 1 cm area of chronic hemorrhagic change, unchanged from 2019.
MRI of cervical spine failed to demonstrate clinically significant findings.
Redding palsy on the left is of no consequence.
Patient was not a candidate for either tenecteplase or intra-arterial thrombectomy due to timeframe greater than 24 hours
Plan
Continue patient's routine aspirin 81 mg daily
Add clopidogrel 75 mg daily during the next 21 days, then replacement of the aspirin with clopidogrel routinely after 21 days.
LDL goal <70. LDL is 20. Continue home rosuvastatin 20mg daily.
Goal of normotension as the onset of symptomatology is undoubtedly greater than 24 hours
Goal of normoglycemia, hbA1c is 8.4.
NIHSS and neurological checks per unit guidelines.
Provide a stroke education packet.
PT/OT/ST evaluations.
DVT prophylaxis
Follow-up with Neurology as an outpatient, may see the [employer] SCIENCES DEPARTMENT CHAIR or one of the physicians.
Subjective/Objective
Subjective Data
Date of Service: January 09, 2024
No acute events overnight. Patient reports ongoing LLE weakness, RUE limited ROM due to shoulder discomfort, gait dysfunction. She denies any headache, dizziness, speech/swallow difficulty, numbness, nausea, chest pain, palpitations, and shortness
of breath.
Objective Data
Vital Signs
Temp Pulse Resp BP Pulse Ox
97.7 F 70 17 127/67 94
01/09/24 03:04 01/09/24 03:04 01/09/24 03:04 01/09/24 03:04 01/09/24 03:04
Lab Results
01/08/24 06:39
01/08/24 06:39
Sodium 134 mmol/L (135-145) L 01/08/24 06:39
Potassium 4.3 mmol/L (3.5-5.1) 01/08/24 06:39
BUN 13 mg/dl (7-17) 01/08/24 06:39
Glucose 184 mg/dl (70-99) H 01/08/24 06:39
Calcium 9.4 mg/dl (8.4-10.2) 01/08/24 06:39
LDL Cholesterol, Calc 20 mg/dl 01/07/24 07:02
Vitamin B12 858 pg/ml (239-931) 01/07/24 07:02
Patient Allergies
No Known Allergies Allergy (Verified 01/06/24 09:28)
LDL Level: <70, continue statin
Review of Systems
-
History Source: Patient
EENT: Negative Blurry Vision, Decreased Vision or Swallowing Difficulty
Respiratory: Negative Cough or Trouble Breathing
Cardiac: Negative Chest Pain or Palpitations
Abdomen/GI: Negative Nausea
Neuro: Weakness and Ataxia; Negative Dizzy, Headache, Numbness, Tremors or Speech Problem
Physical Exam
-
General: Well Developed, Well Nourished and No Apparent Distress
Eyes: No Ptosis and PERRLA
HEENT: Normocephalic and Atraumatic
Neck: Full Range of Motion
GI: Non-distended
Extremities: No Clubbing, No Cyanosis and No Edema
Psych: Unremarkable
Extended Neurological Exam
Mood & Affect: Mood Unremarkable and Affect Unremarkable
Attention Span & Concentration: Awake, Alert and Interactive
Memory: Unremarkable (AAOx3) and Able to Recall
Tremor: Hand Tremor Absent and Head Tremor Absent
Involuntary Movement: None
Speech: Quality Unremarkable, Quantity Unremarkable and Rate of Production Unremarkable
Cranial Nerve II: Left Eye: Pupillary Reactivity Unremarkable, Pupillary Size Unremarkable and Visual Perez Intact
Cranial Nerve II: Right Eye: Pupillary Reactivity Unremarkable, Pupillary Size Unremarkable and Visual Perez Intact
Cranial Nerves III, IV, : Extraocular Movement: Extraocular Movement Full in all Directions
Cranial Nerve V: Facial Sensation: Intact to Light Touch
Cranial Nerve VII: Facial Symmetry: Reduced (slight left facial drooping)
Cranial Nerve VIII: Hearing: Unremarkable Hearing to Normal Conversational Volume
Cranial Nerves IX, X: Palate Movement: Palate Elevation Symmetric
Cranial Nerve XI: Shoulder Shrug: Unremarkable
Cranial Nerve XII: Tongue Protusion: Midline
Muscle Strength, Overall: Reduced on Left (LLE 5-/5, RUE limited ROM full distal strength)
Muscle Bulk & Tone: Bulk Unremarkable and Tone Unremarkable
Pronator Drift: No Drift in Upper Extremities and No Drift in Lower Extremities
Touch Sensation: Double Simultaneous Stimulation Unremarkable
Coordination: Ktnqcj-[id number] Testing Unremarkable
Babinski Sign: Absent Bilaterally
Modified [place] Score (MRS)
-
Modified [place] Scale (mRS): Moderate disability. Requires some help, able to walk unassisted.
Score: 3
Data Reviewed
-
CT Head: Report Reviewed and Image Reviewed
MRI Head: Report Reviewed and Image Reviewed
MRI Cervical Spine: Report Reviewed and Image Reviewed
MRA Head: Report Reviewed and Image Reviewed
Labs: Report Reviewed
Lipid Profile: Report Reviewed
HgbA1C: Report Reviewed
Reviewed with: Physician and Patient
Medications
-
Active Medications
Generic Name Dose Route Start Last Admin
Trade Name Freq PRN Reason Stop Dose Admin
Acetaminophen 650 mg 01/06/24 17:24
Acetaminophen 325 Mg Tablet PO 02/03/24 17:23
Q4HPRN PRN
mild pain/RANDALL/temp> 100.4F
Aspirin 81 mg 01/07/24 08:00 01/09/24 08:36
Aspirin 81 Mg Chewable Tablet PO 02/04/24 07:59 81 mg
DAILY BIRDIE Administration
Bisacodyl 10 mg 01/06/24 17:24
Bisacodyl 10 Mg Rectal Suppository RECTAL 02/03/24 17:23
[id number] PRN
constipation
Cefdinir 300 mg 01/06/24 20:00 01/09/24 08:37
Cefdinir 300 Mg Capsule PO 300 mg
BID BIRDIE Administration
Clopidogrel Bisulfate 75 mg 01/08/24 08:00 01/09/24 08:38
Clopidogrel 75 Mg Tablet PO 02/05/24 07:59 75 mg
DAILY BIRDIE Administration
Dextrose 12.5 grams 01/06/24 17:24
Dextrose 50% (0.5 Grams/Ml) 50 Ml Syringe IV 02/03/24 17:23
[id number] PRN
hypoglycemia
Protocol
Enoxaparin Sodium 40 mg 01/06/24 18:00 01/08/24 17:47
Enoxaparin Sodium 40 Mg/0.4 Ml Syringe SC 02/03/24 17:59 40 mg
QPM BIRDIE Administration
Glucagon 1 mg 01/06/24 17:24
Glucagon 1 Mg Vial IM 02/03/24 17:23
PRN PRN
hypoglycemia
Protocol
Hydralazine HCl 5 mg 01/08/24 10:16
Hydralazine 10 Mg Tablet PO 02/05/24 10:15
TIDPRN PRN
SBP more than 160
Hydroxyurea 500 mg 01/07/24 08:00 01/09/24 08:43
Hydroxyurea 500 Mg Capsule PO 02/04/24 07:59 500 mg
MoTuWeThFrSa@0800 BIRDIE Administration
Insulin Glargine 22 units/ 0.22 mls @ 0 mls/hr 01/08/24 10:19 01/08/24 22:11
Device SC 02/03/24 21:59 0.22 mls
HS BIRDIE Administration
As Directed
Insulin Aspart 6 units 01/07/24 18:00 01/09/24 12:08
Insulin Aspart (100 Units/Ml) 3 Ml Flexpen SC 02/04/24 17:59 6 units
AC BIRDIE Administration
Insulin Aspart 0 units 01/06/24 17:24 01/09/24 12:08
Insulin Aspart Low Resistance 300 Units/3 Ml Pen.Injctr SC 02/03/24 17:23 2 units
AC BIRDIE Administration
Protocol
Lidocaine 1 patch 01/07/24 08:00 01/09/24 08:38
Lidocaine 4% Topical Patch TOPICAL 02/04/24 07:59 1 patch
DAILY BIRDIE Administration
Magnesium Oxide 1,000 mg 01/07/24 08:00 01/09/24 08:36
Magnesium Oxide 500 Mg Tablet PO 02/04/24 07:59 1,000 mg
DAILY BIRDIE Administration
Metformin HCl 1,000 mg 01/07/24 08:00 01/09/24 08:37
Metformin 1000 Mg Regular Release Tablet PO 02/04/24 07:59 1,000 mg
BID@0800,1700 BIRDIE Administration
Metoprolol Succinate 100 mg 01/07/24 08:00 01/09/24 08:37
Metoprolol 100 Mg Extended Release Tablet PO 02/04/24 07:59 100 mg
DAILY BIRDIE Administration
Nifedipine 60 mg 01/09/24 08:00 01/09/24 08:35
Nifedipine 60 Mg Extended Release Tablet PO 02/06/24 07:59 60 mg
DAILY BIRDIE Administration
Polyethylene Glycol 17 grams 01/06/24 17:24
Polyethylene Glycol Powder 17 Grams Packet PO 02/03/24 17:23
DAILYPRN PRN
constipation
Rosuvastatin Calcium 20 mg 01/07/24 08:00 01/09/24 08:36
Rosuvastatin (Crestor) 20 Mg Tablet PO 02/04/24 07:59 20 mg
DAILY BIRDIE Administration
Senna/Docusate Sodium 1 tablet 01/06/24 17:24
Docusate W/Senna (Kathie-Colace) Tablet PO 02/03/24 17:23
BIDPRN PRN
constipation
Sodium Chloride 0 flush 01/06/24 18:00
Sodium Chloride 0.9% (Flush) Syringe IV 02/03/24 17:59
PER PROTOCOL BIRDIE
Valsartan 320 mg 01/07/24 08:00 01/09/24 08:35
Valsartan 80 Mg Tablet PO 02/04/24 07:59 320 mg
DAILY BIRDIE Administration
Home Medications
�Medication �Instructions �Recorded
metformin 1,000 mg tablet 1,000 mg PO BID Diabetes 06/03/19
hydroxyurea 500 mg capsule 500 mg PO MOTUWETHFRSA hematology 05/01/22
metoprolol succinate 100 mg 100 mg PO DAILY Blood pressure 05/01/22
tablet,extended release 24 hr
rosuvastatin 20 mg tablet 20 mg PO DAILY High cholesterol 05/01/22
valsartan 320 mg tablet 320 mg PO DAILY Blood pressure 05/01/22
calcium carbonate 500 mg PO DAILY Supplement 01/04/24
insulin aspart 6 unit SC AC Diabetes 01/04/24
(niacinamide)(U-100) 100 unit/mL(3
mL) subcutaneous pen (Fiasp
FlexTouch U-100 Insulin)
insulin glargine 100 unit/mL (3 15 unit SC HS Diabetes 01/04/24
mL) subcutaneous pen (Basaglar
KwikPen U-100 Insulin)
magnesium oxide 1,000 mg PO DAILY Electrolyte 01/04/24
Repletion
amlodipine 10 mg tablet 10 mg PO DAILY Blood Pressure 01/06/24
aspirin 81 mg chewable tablet 81 mg PO DAILY Blood Clot 01/06/24
Prevention/Tx
cefdinir 300 mg capsule 300 mg PO BID Infection 01/06/24
NIH Stroke Score
Subsequent NIH Scale
Date of Subsequent NIH Scale: 01/09/24
Time of Subsequent NIH Scale: 10:30
NIH Stroke Score
Level of Consciousness: 0 - Alert
LOC Questions: 0-Answers both correctly
LOC Commands: 0-Performs both correctly
Best Horizontal Gaze: 0-Normal
Visual Perez: 0=Normal, no visual loss
Facial Palsy: 1=Minor paralysis
Motor - Right Arm: 0=No drift 10 seconds
Motor - Left Arm: 0=No drift 10 seconds
Motor - Right Le-No drift 5 seconds
Motor - Left Le-No drift 5 seconds
Limb Ataxia: 0-Absent
Sensation: 0-Normal
Best Language: 0-No aphasia
Dysarthria: 0-Normal
Extinction and Inattention: 0-No abnormality
Total Score:: 1
Modified [place] (mRS) Score
Modified [place] Scale (mRS): Moderate disability. Requires some help, able to walk unassisted.
Score: 3

Documented by User: Lonnie Ortega MD 01/09/24 14:39
Modified [place] Score (MRS)
-
Score: 3
NIH Stroke Score
NIH Stroke Score
Total Score:: 1
Modified [place] (mRS) Score
Score: 3
[2024-01-09 08:22] LABS: Glucose - Point of Care 160 mg/dl (70-99)
[2024-01-09] MEDS: DIOVAN 320 MG PO (08:35)
[2024-01-09] MEDS: PROCARDIA XL (EXTENDED RELEASE) 60 MG PO (08:35)
[2024-01-09] MEDS: MAGNESIUM OXIDE 1000 MG PO (08:36)
[2024-01-09] MEDS: CRESTOR 20 MG PO (08:36)
[2024-01-09] MEDS: LOW STRENGTH ASPIRIN 81 MG PO (08:36)
[2024-01-09] MEDS: TOPROL XL 100 MG PO (08:37)
[2024-01-09] MEDS: GLUCOPHAGE 1000 MG PO ×2 (08:37→17:17)
[2024-01-09] MEDS: OMNICEF 300 MG PO ×2 (08:37→22:02)
[2024-01-09] MEDS: PLAVIX 75 MG PO (08:38)
[2024-01-09] MEDS: LIDOCAINE 4% PATCH 1 PATCH TOPICAL (08:38)
[2024-01-09] MEDS: NOVOLOG FLEXPEN 6 UNITS SC ×3 (08:39→17:19)
[2024-01-09] MEDS: NOVOLOG FLEXPEN-LOW RESISTANCE 1 UNITS SC ×2 (08:40→17:20)
[2024-01-09] MEDS: HYDREA 500 MG PO (08:43)
[2024-01-09 10:49] LABS: % Basophils 0.8 % (0-2); % Eosinophils 0.8 % (0-6); % Immature Granulocytes 0.4 % (0-0.5); % Lymphocytes 28.8 % (20.5-51.1); % Monocytes 8.2 % (1.7-9.3); Absolute Basophils 0.1 10^3/uL (0-0.2); Absolute Eosinophils 0.1 10^3/uL (0-0.7); Absolute Lymphocytes 2.2 10^3/uL (1.2-3.4); Absolute Monocytes 0.6 10^3/uL (0.1-0.6); Absolute Neutrophils 4.7 10^3/uL (1.4-6.5); Hematocrit 39.4 % (37.0-47.0); Hemoglobin 12.4 g/dL (12.0-16.0); Mean Corp Hgb Conc. 31.5 g/dL (33.0-37.0); Mean Corpuscular Hgb 25.4 pg (27.0-31.0); Mean Corpuscular Volume 80.6 fL (81.0-99.0); Mean Platelet Volume 9.8 fL (7.4-10.4); Nucleated Red Blood Cells % 0 %; Platelet Count 385 10^3/uL (130-400); Red Blood Cell Count 4.89 10^6/uL (4.20-5.40); Red Cell Dist. Width 18.6 % (11.5-14.5); White Blood Cell Count 7.7 10^3/uL (4.8-10.8)
[2024-01-09 11:03] LABS: Blood Urea Nitrogen 15 mg/dl (7-17); Calcium 9.7 mg/dl (8.4-10.2); Carbon Dioxide 27 mmol/L (22-30); Chloride 97 mmol/L (98-107); Estimated Creatinine Clearance 50 ml/min; Glucose 250 mg/dl (70-99); Potassium 4.6 mmol/L (3.5-5.1); Sodium 135 mmol/L (135-145); eGFR > 60.00
[2024-01-09 11:10] VITALS: BP 117/56
[2024-01-09 12:02] LABS: Glucose - Point of Care 216 mg/dl (70-99)
[2024-01-09] MEDS: NOVOLOG FLEXPEN-LOW RESISTANCE 2 UNITS SC (12:08)
--- NOTE | 2024-01-09 13:35 | W.PN.HOSP.TC ---
Today's Communication/Plan
-
Monitor vital signs see plan
Awaiting SNF placement
Continue with aspirin and Plavix for total 21 days and then discontinue aspirin and continue with Plavix routinely
Assessment / Plan
Assessment / Plan
Physical Exam:
General: Well-appearing female no acute respiratory distress
HEENT: Normocephalic atraumatic mucosa slightly dry neck is supple
Heart: Regular rate and rhythm no murmurs
Lungs: Clear no wheeze or rales
Abdomen: Soft nontender nondistended
Extremities: No cyanosis or edema
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 No dysarthria or aphasia
Psych: calm
# Acute/subacute right paramedian pontine ischemic stroke. Left-sided weakness mostly left lower extremity
She denies worsening weakness. She feels her speech is better today.
c/w NIH stroke
echo without vegetation
c/w Crestor, dual anti-plt therapy for 21 days then c/w Plavix. She was on aspirin
LDL is 20, no need to change her Crestor dose
c/w PT/OT
Goal of normotensive now
Neurology mentioned in note ( Recheck MRA of head to determine if the demonstrated cavernous sinus protrusion has significantly changed in size), will d/w Dr Lucio. Will order is he wants it as Inpt. MRA noted, no significant abnormality. Patient
will follow with neurology outpatient
Appreciate neurology help
# Recent UTI. Uncomplicated. Will dc Cefdinir after today ( finished 5 days course). Positive lactic acidosis
Patient is not septic or toxic. Blood culture no growth
# Lactic acidosis, likely related to dehydration.
# Hyponatremia, mild
Hx of Chronic hyponatremia
# Diabetes, poorly controlled
Hemoglobin A1c 8.4 . Avoid hypoglycemia. Continue with insulin sign scale. Increase dose of Lantus.
#Primary hypertension
Poorly controlled
will add PRN hydralazine. Plan to stop Amlodipine, start on Nifedipine
# Hyperlipidemia
Check lipid panel
#Bundle branch block, right
# DVT prophylaxis
-Lovenox subcu
# CODE STATUS
DNR
Total time spent to see the patient, examine the patient on the floor, review data and lab results, discuss treatment plan with patient, nursing staff around 52 minutes
Anticipated Discharge: Within 24 hours
Subjective/Interval History
-
Date of Service: January 09, 2024
denies pain
Objective Data
-
Labs:
Laboratory Results
01/09/24
10:38
WBC 7.7
Hgb 12.4
Hct 39.4
Plt Count 385
Sodium 135
Potassium 4.6
Chloride 97 L
Carbon Dioxide 27
BUN 15
Creatinine 0.8
Glucose 250 H
Calcium 9.7
Vital Signs:
Vital Signs
Temp Pulse Resp BP Pulse Ox
97.4 F 78 18 147/74 97
01/09/24 07:05 01/09/24 07:05 01/09/24 07:05 01/09/24 07:05 01/09/24 11:45
I&O
01/08/24 01/09/24 01/10/24
06:59 06:59 06:59
Intake Total 900 / 900 780 / 780
Output Total 1050 / 1050 950 / 950
Balance -150 / -150 -170 / -170
--- NOTE | 2024-01-09 15:15 | CM ---
Addendum entered by Frida Silvestre 01/09/24 16:36:
Patient has selected [place] [place] referral sent to [facility] skilled.
Original Note:
Chart reviewed and porter sample case is waiting on updated PT/OT notes, referrals were sent to [facility], and both facilities have denied patient. executive manager will review with patient and family alternative skilled options.
Plan; Skilled placement.
[2024-01-09 16:37] VITALS: BP 122/54
[2024-01-09] MEDS: LOVENOX 40 MG SC (17:17)
[2024-01-09 17:20] LABS: Glucose - Point of Care 151 mg/dl (70-99)
[2024-01-09 19:44] VITALS: BP 140/65
[2024-01-09 21:48] LABS: Glucose - Point of Care 204 mg/dl (70-99)
[2024-01-09] MEDS: LANTUS 0.220000000000000001 UNITS SC (22:03)
[2024-01-09 22:29] VITALS: BP 160/74
[2024-01-10] VITALS (9 sets, daily range): BP systolic 108–187; BP diastolic 51–89; PULSE 92–95; O2SAT 96
[2024-01-10] MEDS: APRESOLINE 5 MG PO (03:32)
[2024-01-10 07:07] LABS: % Basophils 0.5 % (0-2); % Eosinophils 0.8 % (0-6); % Immature Granulocytes 0.3 % (0-0.5); % Lymphocytes 22.4 % (20.5-51.1); % Monocytes 8.9 % (1.7-9.3); % Neutrophils 67.1 % (42.2-75.2); Absolute Basophils 0.1 10^3/uL (0-0.2); Absolute Eosinophils 0.1 10^3/uL (0-0.7); Absolute Lymphocytes 2.1 10^3/uL (1.2-3.4); Absolute Monocytes 0.8 10^3/uL (0.1-0.6); Absolute Neutrophils 6.3 10^3/uL (1.4-6.5); Hematocrit 34.2 % (37.0-47.0); Mean Corp Hgb Conc. 32.2 g/dL (33.0-37.0); Mean Corpuscular Hgb 25.2 pg (27.0-31.0); Mean Corpuscular Volume 78.4 fL (81.0-99.0); Mean Platelet Volume 9.9 fL (7.4-10.4); Nucleated Red Blood Cells % 0 %; Platelet Count 342 10^3/uL (130-400); Red Blood Cell Count 4.36 10^6/uL (4.20-5.40); Red Cell Dist. Width 18.8 % (11.5-14.5); White Blood Cell Count 9.4 10^3/uL (4.8-10.8)
[2024-01-10 07:29] LABS: Blood Urea Nitrogen 20 mg/dl (7-17); Calcium 9.5 mg/dl (8.4-10.2); Carbon Dioxide 23 mmol/L (22-30); Chloride 98 mmol/L (98-107); Estimated Creatinine Clearance 50 ml/min; Glucose 130 mg/dl (70-99); Potassium 4.4 mmol/L (3.5-5.1); Sodium 131 mmol/L (135-145); eGFR > 60.00
[2024-01-10 07:32] LABS: Glucose - Point of Care 178 mg/dl (70-99)
--- NOTE | 2024-01-10 08:55 | CM ---
computer programming manager reviewed patient's chart and met with patient and patient is agreeable to [facility], referral sent to [facility] yesterday and message left for Keara in admissions at [facility] to check on a bed for patient.
Plan; Await determination from [facility].
[2024-01-10] MEDS: LIDOCAINE 4% PATCH TOPICAL (09:40)
[2024-01-10] MEDS: DIOVAN 320 MG PO (09:40)
[2024-01-10] MEDS: PROCARDIA XL (EXTENDED RELEASE) 60 MG PO (09:41)
[2024-01-10] MEDS: TOPROL XL 100 MG PO (09:41)
[2024-01-10] MEDS: MAGNESIUM OXIDE 1000 MG PO (09:42)
[2024-01-10] MEDS: PLAVIX 75 MG PO (09:42)
[2024-01-10] MEDS: LOW STRENGTH ASPIRIN 81 MG PO (09:42)
[2024-01-10] MEDS: OMNICEF 300 MG PO (09:43)
[2024-01-10] MEDS: NOVOLOG FLEXPEN-LOW RESISTANCE 7 UNITS SC (09:43)
[2024-01-10] MEDS: NOVOLOG FLEXPEN 6 UNITS SC ×3 (09:44→18:30)
[2024-01-10] MEDS: CRESTOR 20 MG PO (09:47)
[2024-01-10] MEDS: GLUCOPHAGE 1000 MG PO ×2 (09:47→17:48)
[2024-01-10] MEDS: HYDREA 500 MG PO (09:51)
[2024-01-10 11:35] LABS: Glucose - Point of Care 308 mg/dl (70-99)
--- NOTE | 2024-01-10 12:31 | W.PN.HOSP.TC ---
Today's Communication/Plan
-
Monitor vital signs and see plan
Continue with aspirin and Plavix
Pending placement
Monitor sodium
Assessment / Plan
Assessment / Plan
Physical Exam:
General: Well-appearing female no acute respiratory distress
HEENT: Normocephalic atraumatic mucosa slightly dry neck is supple
Heart: Regular rate and rhythm no murmurs
Lungs: Clear no wheeze or rales
Abdomen: Soft nontender nondistended
Extremities: No cyanosis or edema
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 No dysarthria or aphasia
Psych: calm
# Acute/subacute right paramedian pontine ischemic stroke. Left-sided weakness mostly left lower extremity
She denies worsening weakness. She feels her speech is better today.
c/w NIH stroke
echo without vegetation
c/w Crestor, dual anti-plt therapy for 21 days then c/w Plavix. She was on aspirin
LDL is 20, no need to change her Crestor dose
c/w PT/OT
Goal of normotensive now
Neurology mentioned in note ( Recheck MRA of head to determine if the demonstrated cavernous sinus protrusion has significantly changed in size), will d/w Dr Lucio. Will order is he wants it as Inpt. MRA noted, no significant abnormality. Patient
will follow with neurology outpatient
Appreciate neurology help
# Recent UTI. Uncomplicated. Finished course of antibiotics with cefdinir. Positive lactic acidosis
Patient is not septic or toxic. Blood culture no growth
# Lactic acidosis, likely related to dehydration.
# Hyponatremia, mild
Hx of Chronic hyponatremia
# Diabetes, poorly controlled
Hemoglobin A1c 8.4 . Avoid hypoglycemia. Continue with insulin sign scale. Increase dose of Lantus.
#Primary hypertension
Poorly controlled
will add PRN hydralazine. Plan to stop Amlodipine, started on Nifedipine
# Hyperlipidemia
Check lipid panel
#Bundle branch block, right
# DVT prophylaxis
-Lovenox subcu
# CODE STATUS
DNR
Anticipated Discharge: Within 24 hours
Subjective/Interval History
-
Date of Service: January 10, 2024
denies pain
Objective Data
-
Labs:
Laboratory Results
01/10/24
05:55
WBC 9.4
Hgb 11.0 L
Hct 34.2 L
Plt Count 342
Sodium 131 L
Potassium 4.4
Chloride 98
Carbon Dioxide 23
BUN 20 H
Creatinine 0.8
Glucose 130 H
Calcium 9.5
Vital Signs:
Vital Signs
Temp Pulse Resp BP Pulse Ox
98.1 F 86 18 108/51 96
01/10/24 11:00 01/10/24 11:00 01/10/24 11:00 01/10/24 11:00 01/10/24 11:00
I&O
01/09/24 01/10/24 01/11/24
06:59 06:59 06:59
Intake Total 780 / 780 180 / 180
Output Total 950 / 950
Balance -170 / -170 180 / 180
[2024-01-10] MEDS: NOVOLOG FLEXPEN-LOW RESISTANCE 4 UNITS SC (12:58)
[2024-01-10] MEDS: LOVENOX 40 MG SC (17:48)
[2024-01-10] MEDS: NOVOLOG FLEXPEN-LOW RESISTANCE SC (17:49)
[2024-01-10 17:51] LABS: Glucose - Point of Care 99 mg/dl (70-99)
[2024-01-10 21:54] LABS: Glucose - Point of Care 169 mg/dl (70-99)
[2024-01-10] MEDS: LANTUS 0.220000000000000001 UNITS SC (22:22)
[2024-01-11] VITALS (7 sets, daily range): BP systolic 121–163; BP diastolic 58–73; PULSE 98; O2SAT 97–98
[2024-01-11 06:57] LABS: % Basophils 0.9 % (0-2); % Eosinophils 1.3 % (0-6); % Immature Granulocytes 0.4 % (0-0.5); % Lymphocytes 28.4 % (20.5-51.1); % Monocytes 8.9 % (1.7-9.3); % Neutrophils 60.1 % (42.2-75.2); Absolute Basophils 0.1 10^3/uL (0-0.2); Absolute Eosinophils 0.1 10^3/uL (0-0.7); Absolute Lymphocytes 2.1 10^3/uL (1.2-3.4); Absolute Monocytes 0.7 10^3/uL (0.1-0.6); Absolute Neutrophils 4.5 10^3/uL (1.4-6.5); Hematocrit 35.3 % (37.0-47.0); Mean Corp Hgb Conc. 31.2 g/dL (33.0-37.0); Mean Corpuscular Hgb 25.4 pg (27.0-31.0); Mean Corpuscular Volume 81.5 fL (81.0-99.0); Mean Platelet Volume 9.8 fL (7.4-10.4); Nucleated Red Blood Cells % 0 %; Platelet Count 316 10^3/uL (130-400); Red Blood Cell Count 4.33 10^6/uL (4.20-5.40); Red Cell Dist. Width 18.6 % (11.5-14.5); White Blood Cell Count 7.5 10^3/uL (4.8-10.8)
[2024-01-11 07:32] LABS: Blood Urea Nitrogen 19 mg/dl (7-17); Calcium 9.2 mg/dl (8.4-10.2); Carbon Dioxide 26 mmol/L (22-30); Chloride 99 mmol/L (98-107); Estimated Creatinine Clearance 50 ml/min; Glucose 165 mg/dl (70-99); Potassium 4.6 mmol/L (3.5-5.1); Sodium 133 mmol/L (135-145); eGFR > 60.00
[2024-01-11 08:14] LABS: Glucose - Point of Care 189 mg/dl (70-99)
--- NOTE | 2024-01-11 08:54 | CM ---
Addendum entered by Frida Silvestre 01/11/24 16:32:
Patient has been accepted at [facility] tomorrow, 1pm fruit or nut picker, son to provide transport.
Plan; [facility] skilled tomorrow.
Report [phone]

Original Note:
Call placed to admissions at [facility] to check on available bed today. No Auth required.
Plan;Skilled placement.
[2024-01-11] MEDS: PROCARDIA XL (EXTENDED RELEASE) 60 MG PO (09:10)
[2024-01-11] MEDS: PLAVIX 75 MG PO (09:10)
[2024-01-11] MEDS: LOW STRENGTH ASPIRIN 81 MG PO (09:11)
[2024-01-11] MEDS: MAGNESIUM OXIDE 1000 MG PO (09:11)
[2024-01-11] MEDS: CRESTOR 20 MG PO (09:11)
[2024-01-11] MEDS: DIOVAN 320 MG PO (09:11)
[2024-01-11] MEDS: GLUCOPHAGE 1000 MG PO ×2 (09:11→18:25)
[2024-01-11] MEDS: LIDOCAINE 4% PATCH TOPICAL (09:12)
[2024-01-11] MEDS: TOPROL XL 100 MG PO (09:12)
[2024-01-11] MEDS: NOVOLOG FLEXPEN 6 UNITS SC ×3 (09:12→18:25)
[2024-01-11] MEDS: NOVOLOG FLEXPEN-LOW RESISTANCE 1 UNITS SC ×2 (09:13→13:05)
[2024-01-11] MEDS: HYDREA 500 MG PO (09:15)
--- NOTE | 2024-01-11 11:49 | W.PN.HOSP.TC ---
Today's Communication/Plan
-
Monitor vital signs
see plan
Awaiting placement, rifle case repairer aware
Continue with current medications
Assessment / Plan
Assessment / Plan
Physical Exam:
General: Well-appearing female no acute respiratory distress
HEENT: Normocephalic atraumatic mucosa slightly dry neck is supple
Heart: Regular rate and rhythm no murmurs
Lungs: Clear no wheeze or rales
Abdomen: Soft nontender nondistended
Extremities: No cyanosis or edema
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 No dysarthria or aphasia
Psych: calm
# Acute/subacute right paramedian pontine ischemic stroke. Left-sided weakness mostly left lower extremity
She denies worsening weakness. She feels her speech is better today.
c/w NIH stroke
echo without vegetation
c/w Crestor, dual anti-plt therapy for 21 days then c/w Plavix. She was on aspirin
LDL is 20, no need to change her Crestor dose
c/w PT/OT
Goal of normotensive now
Neurology mentioned in note ( Recheck MRA of head to determine if the demonstrated cavernous sinus protrusion has significantly changed in size), will d/w Dr Lucio. Will order is he wants it as Inpt. MRA noted, no significant abnormality. Patient
will follow with neurology outpatient
Appreciate neurology help
# Recent UTI. Uncomplicated. Finished course of antibiotics with cefdinir. Positive lactic acidosis
Patient is not septic or toxic. Blood culture no growth
# Lactic acidosis, likely related to dehydration.
# Hyponatremia, mild
Hx of Chronic hyponatremia
# Diabetes, poorly controlled
Hemoglobin A1c 8.4 . Avoid hypoglycemia. Continue with insulin sign scale. Increase dose of Lantus.
#Primary hypertension
Poorly controlled
will add PRN hydralazine. Plan to stop Amlodipine, started on Nifedipine
# Hyperlipidemia
Check lipid panel
#Bundle branch block, right
# DVT prophylaxis
-Lovenox subcu
# CODE STATUS
DNR
Anticipated Discharge: Today
Subjective/Interval History
-
Date of Service: January 11, 2024
denies pain
Objective Data
-
Labs:
Laboratory Results
01/11/24
06:00
WBC 7.5
Hgb 11.0 L
Hct 35.3 L
Plt Count 316
Sodium 133 L
Potassium 4.6
Chloride 99
Carbon Dioxide 26
BUN 19 H
Creatinine 0.8
Glucose 165 H
Calcium 9.2
Vital Signs:
Vital Signs
Temp Pulse Resp BP Pulse Ox
98.6 F 83 18 152/73 97
01/11/24 07:00 01/11/24 09:10 01/11/24 07:00 01/11/24 09:10 01/11/24 07:00
I&O
01/10/24 01/11/24 01/12/24
06:59 06:59 06:59
Intake Total 180 / 180 1200 / 1200
Output Total 700 / 700
Balance 180 / 180 500 / 500
[2024-01-11 12:35] LABS: Glucose - Point of Care 178 mg/dl (70-99)
[2024-01-11 17:34] LABS: Glucose - Point of Care 119 mg/dl (70-99)
[2024-01-11] MEDS: NOVOLOG FLEXPEN-LOW RESISTANCE SC (17:40)
[2024-01-11] MEDS: LOVENOX 40 MG SC (18:25)
[2024-01-11 23:06] LABS: Glucose - Point of Care 165 mg/dl (70-99)
[2024-01-11] MEDS: LANTUS 0.220000000000000001 UNITS SC (23:26)
[2024-01-12 04:25] VITALS: BP 127/78
[2024-01-12 07:44] LABS: % Basophils 0.7 % (0-2); % Eosinophils 0.8 % (0-6); % Immature Granulocytes 0.4 % (0-0.5); % Lymphocytes 29.5 % (20.5-51.1); % Monocytes 8.9 % (1.7-9.3); % Neutrophils 59.7 % (42.2-75.2); Absolute Basophils 0.1 10^3/uL (0-0.2); Absolute Eosinophils 0.1 10^3/uL (0-0.7); Absolute Lymphocytes 2.1 10^3/uL (1.2-3.4); Absolute Monocytes 0.6 10^3/uL (0.1-0.6); Absolute Neutrophils 4.3 10^3/uL (1.4-6.5); Hematocrit 35.6 % (37.0-47.0); Hemoglobin 11.2 g/dL (12.0-16.0); Mean Corp Hgb Conc. 31.5 g/dL (33.0-37.0); Mean Corpuscular Hgb 25.4 pg (27.0-31.0); Mean Corpuscular Volume 80.7 fL (81.0-99.0); Mean Platelet Volume 9.6 fL (7.4-10.4); Nucleated Red Blood Cells % 0 %; Platelet Count 328 10^3/uL (130-400); Red Blood Cell Count 4.41 10^6/uL (4.20-5.40); Red Cell Dist. Width 18.3 % (11.5-14.5); White Blood Cell Count 7.2 10^3/uL (4.8-10.8)
[2024-01-12 07:48] LABS: Glucose - Point of Care 175 mg/dl (70-99)
[2024-01-12 08:01] LABS: Blood Urea Nitrogen 21 mg/dl (7-17); Carbon Dioxide 26 mmol/L (22-30); Chloride 97 mmol/L (98-107); Estimated Creatinine Clearance 50 ml/min; Glucose 157 mg/dl (70-99); Potassium 4.7 mmol/L (3.5-5.1); Sodium 132 mmol/L (135-145); eGFR > 60.00
[2024-01-12] MEDS: DIOVAN 320 MG PO (08:58)
[2024-01-12] MEDS: CRESTOR 20 MG PO (08:59)
[2024-01-12] MEDS: MAGNESIUM OXIDE 1000 MG PO (08:59)
[2024-01-12] MEDS: NOVOLOG FLEXPEN 6 UNITS SC ×2 (08:59→11:51)
[2024-01-12] MEDS: LOW STRENGTH ASPIRIN 81 MG PO (08:59)
[2024-01-12] MEDS: PROCARDIA XL (EXTENDED RELEASE) 60 MG PO (08:59)
[2024-01-12] MEDS: TOPROL XL 100 MG PO (08:59)
[2024-01-12] MEDS: NOVOLOG FLEXPEN-LOW RESISTANCE 1 UNITS SC ×2 (08:59→11:51)
[2024-01-12] MEDS: PLAVIX 75 MG PO (08:59)
[2024-01-12] MEDS: GLUCOPHAGE 1000 MG PO (08:59)
[2024-01-12] MEDS: HYDREA 500 MG PO (09:02)
[2024-01-12] MEDS: LIDOCAINE 4% PATCH TOPICAL (09:03)
--- NOTE | 2024-01-12 09:48 | CM ---
production operations manager reviewed patient's chart and met with patient and plan is for skilled placement at [facility] today, patient's son to transport patient at 1pm, update provided to admissions at [facility].
Plan; Skilled placed at [facility].
Report [phone]
[2024-01-12 11:00] VITALS: BP 165/71
--- NOTE | 2024-01-12 11:03 | W.PN.HOSP.TC ---
Today's Communication/Plan
-
Monitor vital signs and see plan
Continue with dual antiplatelet therapy
Discharge today to SNF
Time of discharge 38 minutes
Assessment / Plan
Assessment / Plan
Physical Exam:
General: Well-appearing female no acute respiratory distress
HEENT: Normocephalic atraumatic mucosa slightly dry neck is supple
Heart: Regular rate and rhythm no murmurs
Lungs: Clear no wheeze or rales
Abdomen: Soft nontender nondistended
Extremities: No cyanosis or edema
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 No dysarthria or aphasia
Psych: calm
# Acute/subacute right paramedian pontine ischemic stroke. Left-sided weakness mostly left lower extremity
She denies worsening weakness. She feels her speech is better today.
c/w NIH stroke
echo without vegetation
c/w Crestor, dual anti-plt therapy for 21 days then c/w Plavix. She was on aspirin
LDL is 20, no need to change her Crestor dose
c/w PT/OT
Goal of normotensive now
Neurology mentioned in note ( Recheck MRA of head to determine if the demonstrated cavernous sinus protrusion has significantly changed in size), will d/w Dr Lucio. Will order is he wants it as Inpt. MRA noted, no significant abnormality. Patient
will follow with neurology outpatient
Appreciate neurology help
# Recent UTI. Uncomplicated. Finished course of antibiotics with cefdinir. Positive lactic acidosis
Patient is not septic or toxic. Blood culture no growth
# Lactic acidosis, likely related to dehydration.
# Hyponatremia, mild
Hx of Chronic hyponatremia
# Diabetes, poorly controlled
Hemoglobin A1c 8.4 . Avoid hypoglycemia. Continue with insulin sign scale. Increase dose of Lantus.
#Primary hypertension
Poorly controlled
will add PRN hydralazine. Plan to stop Amlodipine, started on Nifedipine
# Hyperlipidemia
#Bundle branch block, right
# DVT prophylaxis
-Lovenox subcu
# CODE STATUS
DNR
Anticipated Discharge: Today
Subjective/Interval History
-
Date of Service: January 12, 2024
Denies pain
Objective Data
-
Labs:
Laboratory Results
01/12/24
07:06
WBC 7.2
Hgb 11.2 L
Hct 35.6 L
Plt Count 328
Sodium 132 L
Potassium 4.7
Chloride 97 L
Carbon Dioxide 26
BUN 21 H
Creatinine 0.8
Glucose 157 H
Calcium 9.0
Vital Signs:
Vital Signs
Temp Pulse Resp BP Pulse Ox
98.7 F 93 20 127/78 96
01/12/24 04:25 01/12/24 04:25 01/12/24 04:25 01/12/24 04:25 01/12/24 04:25
I&O
01/11/24 01/12/24 01/13/24
06:59 06:59 06:59
Intake Total 1200 / 1200 600 / 600
Output Total 700 / 700 1300 / 1300
Balance 500 / 500 -700 / -700
--- NOTE | 2024-01-12 11:09 | W.DCSUMMARY ---
Discharge Summary
Discharge Data
Date of Admission: 01/07/24
Date of Discharge: 01/12/24
-
Pending Results: No
Hospital Course
83-year-old female with past medical history of diabetes, hypertension, hyperlipidemia, right bundle branch block came to the hospital with left-sided weakness. Imaging was consistent with acute/subacute right pontine ischemic stroke. Patient was
seen by neurology throughout hospitalization. Patient already was on aspirin so Plavix was added. Patient instructed to continue aspirin and Plavix for total of 21 days and then after that discontinue aspirin and continue Plavix indefinitely.
Patient also had a urinary tract infection for which patient was treated with antibiotics. Patient was also evaluated by physical therapy who recommended SNF. Once patient symptoms continue to improve and she had SNF placement, she was then
discharged to rehab with instructions to follow-up with all her physicians outpatient.
Discharge Plan
-
Patient Disposition: Senior Living/SNF
Discharge Diagnosis/Procedures: Acute/subacute right paramedian pontine ischemic stroke
Recent urinary tract infection
Hyponatremia
Lactic acidosis
Diet: As tolerated and Diabetic, Carb Controlled
Activity: As tolerated
Driving Restrictions: As prior to admission
Bathing Restrictions: None
Activity Restrictions/Additional Instructions:
Continue aspirin and Plavix through 01/27/2024. Starting 01/28/2024 discontinue aspirin and just continue Plavix routinely
Referrals:
Patrick Lucio MD [Active] - in three to four weeks
Max Choudhury MD [Family Provider] - in less than 1 week
Prescriptions:
New
lidocaine 4 % Adhesive Patch,Medicated
1 patch topical DAILY Qty: 30 0RF
clopidogrel 75 mg Tablet
75 mg PO DAILY Qty: 0 0RF
nifedipine 60 mg Tablet Extended Release
60 mg PO DAILY Qty: 0 0RF
Continued
metformin 1,000 MG tablet
1,000 mg PO BID
hydroxyurea 500 mg capsule
500 mg PO MOTUWETHFRSA
valsartan 320 mg tablet
320 mg PO DAILY
rosuvastatin 20 mg tablet
20 mg PO DAILY
metoprolol succinate 100 MG tablet extended release 24 hr
100 mg PO DAILY
Fiasp FlexTouch U-100 Insulin 100 unit/mL (3 mL) Insulin Pen
6 unit SC AC
calcium carbonate 500 mg calcium (1,250 mg) Tablet
500 mg PO DAILY
magnesium oxide 500 mg magnesium Tablet
1,000 mg PO DAILY
aspirin 81 MG tablet,chewable
81 mg PO DAILY
Changed
insulin glargine [Basaglar KwikPen U-100 Insulin] 100 unit/mL (3 mL) Insulin Pen
22 unit SC HS Qty: 0 0RF
Discontinued
amlodipine 10 MG tablet
10 mg PO DAILY
cefdinir 300 mg capsule
300 mg PO BID
Discharge Orders:
Discharge Patient (As Directed); Ordered 01/12/24
Ordered By: Tim Grey
Discharge Date and Time
Discharge Date/Time: 01/12/24 14:14
Print Language: MACANESE
[2024-01-12 11:25] LABS: Glucose - Point of Care 174 mg/dl (70-99)
== END 2024-01-12 14:14 | DRG 65 ==
LOC: 4 WEST ACU 14:27
PROVIDERS: Registered Nurse; ADMITTING PHYSICIAN Internal Medicine; ATTENDING PHYSICIAN Internal Medicine; CONSULT PHYSICIAN Psychiatry & Neurology Neurology; EMERGENCY PHYSICIAN Emergency Medicine; FAMILY PHYSICIAN Internal Medicine Geriatric Medicine
DX: I63.29 Cerebral infarction due to unspecified occlusion or stenosis of other precerebral arteries (principal); E87.1 Hypo-osmolality and hyponatremia; E87.20 Acidosis, unspecified; N39.0 Urinary tract infection, site not specified; G81.94 Hemiplegia, unspecified affecting left nondominant side; R26.2 Difficulty in walking, not elsewhere classified; G51.0 Bell's palsy; E78.5 Hyperlipidemia, unspecified; E86.0 Dehydration; I45.10 Unspecified right bundle-branch block; M25.562 Pain in left knee; E11.42 Type 2 diabetes mellitus with diabetic polyneuropathy; I10 Essential (primary) hypertension; W01.10XA Fall on same level from slipping, tripping and stumbling with subsequent striking against unspecified object, initial encounter; Y93.9 Activity, unspecified; Y92.009 Unspecified place in unspecified non-institutional (private) residence as the place of occurrence of the external cause; Z66 Do not resuscitate; Z60.2 Problems related to living alone; Z79.82 Long term (current) use of aspirin; Z79.84 Long term (current) use of oral hypoglycemic drugs; Z79.4 Long term (current) use of insulin
CPT/HCPCS: 70450; 70544; 70551; 72141; 80048; 80053; 80061; 81003; 81015; 82607; 82728; 82746; 82962; 83036; 83605; 84443; 85025; 85027; 85652; 87040; 87077; 87086; 87186; 92507; 92523; 92526; 92610; 93005; 93306; 96361; 96374; 97116; 97166; 97530; 97535; 99284; 99285

== ENCOUNTER → 2024-01-18 14:43 | Outpatient (REF) | payer OTHER, MEDICARE, SELFPAY ==
[2024-01-18 15:56] LABS: % Basophils 0.7 % (0-2); % Eosinophils 1.1 % (0-6); % Immature Granulocytes 0.3 % (0-0.5); % Lymphocytes 23.6 % (20.5-51.1); % Monocytes 8.5 % (1.7-9.3); % Neutrophils 65.8 % (42.2-75.2); Absolute Basophils 0.1 10^3/uL (0-0.2); Absolute Eosinophils 0.1 10^3/uL (0-0.7); Absolute Lymphocytes 1.7 10^3/uL (1.2-3.4); Absolute Monocytes 0.6 10^3/uL (0.1-0.6); Absolute Neutrophils 4.6 10^3/uL (1.4-6.5); Hematocrit 33.9 % (37.0-47.0); Hemoglobin 10.5 g/dL (12.0-16.0); Mean Corpuscular Hgb 25.4 pg (27.0-31.0); Mean Corpuscular Volume 81.9 fL (81.0-99.0); Mean Platelet Volume 9.7 fL (7.4-10.4); Nucleated Red Blood Cells % 0 %; Platelet Count 380 10^3/uL (130-400); Red Blood Cell Count 4.14 10^6/uL (4.20-5.40); Red Cell Dist. Width 19.1 % (11.5-14.5)
[2024-01-18 16:00] LABS: Blood Urea Nitrogen 16 mg/dl (7-17); Calcium 8.9 mg/dl (8.4-10.2); Carbon Dioxide 26 mmol/L (22-30); Chloride 101 mmol/L (98-107); Glucose 188 mg/dl (70-99); Potassium 4.8 mmol/L (3.5-5.1); Sodium 135 mmol/L (135-145); eGFR > 60.00
== END ==
LOC: OLABP 14:43
PROVIDERS: ATTENDING PHYSICIAN Family Medicine
DX: I63.9 Cerebral infarction, unspecified (principal); I69.354 Hemiplegia and hemiparesis following cerebral infarction affecting left non-dominant side; E11.9 Type 2 diabetes mellitus without complications; I45.10 Unspecified right bundle-branch block; I10 Essential (primary) hypertension; E87.1 Hypo-osmolality and hyponatremia; N39.0 Urinary tract infection, site not specified
CPT/HCPCS: 36415; 80048; 85025

== ENCOUNTER → 2024-01-19 10:27 | Outpatient (REF) | payer OTHER, MEDICARE, SELFPAY ==
[2024-01-19 12:56] LABS: % Basophils 0.9 % (0-2); % Eosinophils 1.3 % (0-6); % Immature Granulocytes 0.7 % (0-0.5); % Monocytes 9.4 % (1.7-9.3); % Neutrophils 58.7 % (42.2-75.2); Absolute Basophils 0.1 10^3/uL (0-0.2); Absolute Eosinophils 0.1 10^3/uL (0-0.7); Absolute Immature Granulocytes 0.1 10^3/uL (0-0.05); Absolute Monocytes 0.6 10^3/uL (0.1-0.6); Hematocrit 32.2 % (37.0-47.0); Hemoglobin 10.2 g/dL (12.0-16.0); Mean Corp Hgb Conc. 31.7 g/dL (33.0-37.0); Mean Corpuscular Hgb 25.3 pg (27.0-31.0); Mean Corpuscular Volume 79.9 fL (81.0-99.0); Mean Platelet Volume 9.5 fL (7.4-10.4); Nucleated Red Blood Cells % 0 %; Platelet Count 365 10^3/uL (130-400); Red Blood Cell Count 4.03 10^6/uL (4.20-5.40); Red Cell Dist. Width 18.8 % (11.5-14.5); White Blood Cell Count 6.8 10^3/uL (4.8-10.8)
[2024-01-19 13:38] LABS: Blood Urea Nitrogen 20 mg/dl (7-17); Carbon Dioxide 21 mmol/L (22-30); Chloride 101 mmol/L (98-107); Glucose 142 mg/dl (70-99); Potassium 5.4 mmol/L (3.5-5.1); Sodium 131 mmol/L (135-145); eGFR > 60.00
== END ==
LOC: OLABP 10:27
PROVIDERS: ATTENDING PHYSICIAN Family Medicine
DX: I63.9 Cerebral infarction, unspecified (principal); I69.354 Hemiplegia and hemiparesis following cerebral infarction affecting left non-dominant side; E11.9 Type 2 diabetes mellitus without complications; I45.10 Unspecified right bundle-branch block; I10 Essential (primary) hypertension; E84.19 Cystic fibrosis with other intestinal manifestations; N39.0 Urinary tract infection, site not specified
CPT/HCPCS: 36415; 80048; 85025

== ENCOUNTER → 2024-01-20 17:15 | Outpatient (REF) | payer OTHER, MEDICARE, SELFPAY ==
[2024-01-20 17:39] LABS: Blood Urea Nitrogen 18 mg/dl (7-17); Calcium 10.4 mg/dl (8.4-10.2); Carbon Dioxide 24 mmol/L (22-30); Chloride 97 mmol/L (98-107); Glucose 219 mg/dl (70-99); Potassium 4.9 mmol/L (3.5-5.1); Sodium 134 mmol/L (135-145); eGFR > 60.00
== END ==
LOC: OLABP 17:15
PROVIDERS: ATTENDING PHYSICIAN Family Medicine
DX: I63.9 Cerebral infarction, unspecified (principal); I69.354 Hemiplegia and hemiparesis following cerebral infarction affecting left non-dominant side
CPT/HCPCS: 36415; 80048

== ENCOUNTER 2024-03-07 11:46 | Inpatient (IN) | payer MEDICARE, OTHER, SELFPAY ==
[2024-03-06] VITALS (11 sets, daily range): BP systolic 106–153; BP diastolic 49–93; BMI 26.5
[2024-03-06 12:24] LABS: % Basophils 0.4 % (0-2); % Eosinophils 0.6 % (0-6); % Immature Granulocytes 0.3 % (0-0.5); % Lymphocytes 17.2 % (20.5-51.1); % Monocytes 10.7 % (1.7-9.3); % Neutrophils 70.8 % (42.2-75.2); Absolute Eosinophils 0.1 10^3/uL (0-0.7); Absolute Lymphocytes 1.5 10^3/uL (1.2-3.4); Absolute Neutrophils 6.3 10^3/uL (1.4-6.5); Hematocrit 33.4 % (37.0-47.0); Hemoglobin 11.3 g/dL (12.0-16.0); Mean Corp Hgb Conc. 33.8 g/dL (33.0-37.0); Mean Corpuscular Hgb 27.7 pg (27.0-31.0); Mean Corpuscular Volume 81.9 fL (81.0-99.0); Mean Platelet Volume 9.6 fL (7.4-10.4); Nucleated Red Blood Cells % 0 %; Platelet Count 359 10^3/uL (130-400); Red Blood Cell Count 4.08 10^6/uL (4.20-5.40); Red Cell Dist. Width 19.1 % (11.5-14.5); White Blood Cell Count 8.9 10^3/uL (4.8-10.8)
[2024-03-06 12:34] LABS: ALT (SGPT) 16 U/L (0-35); AST (SGOT) 28 U/L (14-36); Albumin 4.2 g/dl (3.5-5.0); Alkaline Phosphatase 31 U/L (38-126); Blood Urea Nitrogen 14 mg/dl (7-17); Calcium 9.2 mg/dl (8.4-10.2); Carbon Dioxide 21 mmol/L (22-30); Chloride 97 mmol/L (98-107); Estimated Creatinine Clearance 38 ml/min; Glucose 187 mg/dl (70-99); Potassium 5.2 mmol/L (3.5-5.1); Sodium 129 mmol/L (135-145); Total Bilirubin 0.5 mg/dl (0.2-1.3); Total Protein 6.2 g/dl (6.3-8.2); eGFR > 60.00
[2024-03-06 12:44] LABS: Troponin I < 0.012 ng/ml
--- NOTE | 2024-03-06 13:14 | ED.GENMED ---
History of Present Illness
General
Chief Complaint: Weakness
Source: patient
Exam Limitations: none
Time Seen by Provider: 03/06/24 12:23
Nursing documentation reviewed up to this point in time: agreed with
History of Present Illness
History of Present Illness:
The patient is an 83-year-old female with a past medical history of recent CVA who reports he woke up this morning experiencing generalized weakness. Patient reports that she is still able to get around with her walker but she just feels fatigued.
She denies specific complaints such as chest pain, cough, difficulty urinating, and headache. Patient reports he also checked her blood pressure this morning and it was lower than normal.
Past History
Past History
ED Past Medical History: CVA, HTN, NIDDM and Other (Li's palsy)
ED Past Surgical History: Gynecological (Hysterectomy)
Social History
Tobacco: Non-smoker
Alcohol: None
Drug: None
Living: alone
Family History
Family History: Other (reviewed and noncontributory)
Review of Systems
Review of Systems
Allergies reviewed?: Yes
All Other Systems: ROS reviewed and negative except as documented in HPI and ROS
Constitutional: Reports fatigue
EENT: Reports no symptoms
Respiratory: Reports no symptoms
Cardiac: Reports no symptoms
ABD/GI: Reports no symptoms
: Reports no symptoms
Musculoskeletal: Reports no symptoms
Skin: Reports no symptoms
Neurological: Reports no symptoms
Endocrine: Reports no symptoms
Hematologic/Lymphatic: Reports no symptoms
Psychiatric: Reports no symptoms
Phy Exam
Physical Exam
Physical Exam:
Physical Exam
General: no apparent distress, not acutely ill
Neck: supple. no meningeal signs. normal psoterior pharynx
Heart: s1/s2 regular rate and rhythm, no murmur. equal radial pulses.
Lungs: no acute respiratory distress. clear bilaterally
Abdomen: normal bowel sounds. not tender. no CVAT
Neuro: alert and oriented. Chronic facial droop
Skin: no rash
Psychiatric: well kept. interactive and cooperative
Extremities: no edema. no calf tenderness. negative homans. good distal pulses
Course
Orders/Labs/Results
Orders:
Orders
03/06/24 11:59
Electrocardiogram (*1) Urgent
Reason for Study: Fatigue / Weakness
03/06/24 12:00
EKG- Treatment ONCE
03/06/24 12:04
CBC/With Diff [Complete Blood Count/With Diff] Urgent
Comprehensive Metabolic Panel Urgent
Troponin I Urgent
03/06/24 13:13
0.9% Sodium Chloride 500 ml [Nss] 500 ml IV BOLUS
03/06/24 13:38
COVID-19 Antigen Urgent
Source: Nasal Swab
Urinalysis Reflex To Culture Urgent
Date Specimen was Collected: 03/06/24
Time Specimen was Collected: 13:31
Urine Microscopic Reflex Cult Urgent
Urine Culture Urgent
CHRIS Source: U
Specimen Description:
Date Specimen was Collected: 03/06/24
Time Specimen was Collected: 13:31
03/06/24 14:53
CefTRIAXone [Rocephin] 1,000 mg IV NOW STA
Abnormal Lab Results
03/06/24 03/06/24
12:04 13:38
RBC 4.08 L 10^6/uL
(4.20-5.40)
Hgb 11.3 L g/dL
(12.0-16.0)
Hct 33.4 L %
(37.0-47.0)
RDW 19.1 H %
(11.5-14.5)
Absolute Monos (auto) 1.0 H 10^3/uL
(0.1-0.6)
Lymphocytes % 17.2 L %
(20.5-51.1)
Monocytes % 10.7 H %
(1.7-9.3)
Sodium 129 L mmol/L
(135-145)
Potassium 5.2 H mmol/L
(3.5-5.1)
Chloride 97 L mmol/L
(98-107)
Carbon Dioxide 21 L mmol/L
(22-30)
Glucose 187 H mg/dl
(70-99)
Alkaline Phosphatase 31 L U/L
(38-126)
Total Protein 6.2 L g/dl
(6.3-8.2)
Ur Occult Blood Reflex Trace A
(Negative)
Urine Nitrite (Reflex) Positive A
(Negative)
Leukocyte Esterase Rfl 2+ A
(Negative)
Urine WBC (Reflex) 16-20 A /HPF
(0-5)
Urine Bacteria (Reflex) Moderate A
(Negative)
03/06/24 12:04
03/06/24 12:04
Vital Signs
Initial and Last Documented VS:
Initial Vital Signs
Temp Pulse Resp BP Pulse Ox
98.2 F 86 28 106/49 98
03/06/24 12:01 03/06/24 12:01 03/06/24 12:01 03/06/24 12:01 03/06/24 12:01
Last Documented Vital Signs
Temp Pulse Resp BP Pulse Ox
98.2 F 82 14 111/93 97
03/06/24 12:01 03/06/24 13:45 03/06/24 13:45 03/06/24 13:00 03/06/24 13:45
MDM/Problems Addressed
Differential Diagnosis Includes:
UTI, pneumonia, COVID, hyponatremia, dehydration
MDM/Problems Addressed:
patient presents with acute generalized weakness
Chronic conditions affecting care:
Given patient's history of diabetes, she is at increased risk of infection
Chronic conditions affecting care: DM
Acute Exacerbation and/or Progression of Chronic Illness: DM
*Pulse Oximetry
Patient hypoxic: no
*EKG
Interpreted by ED Provider?: Yes
Interpretation: abnormal
Comparison EKG: no changes
Rate: normal
Rhythm: sinus
[place]: normal axis
Interval: normal interval
QRS Pattern: normal QRS
Ischemia: no ischemia
*Workers Compensation Paralegal Interpretation
Rate: normal
Interpretation: normal
Rhythm: sinus
*Critical Care Note
Total Time (30-74mins, 75-104mins- exclusive of procedures): Not Applicable
Data Reviewed
Review of Other/Old Records Reveals: Discharge Summary (Discharge summary reviewed from the hospitalist from January 2024 when patient was admitted for left-sided weakness and found to have a stroke)
Source: patient
ED Attending Note
-
Portions of this chart may have been created with voice recognition software.� Occasional wrong word or��sound alike� substitutions may have occurred due to the inherent limitations of voice recognition software.
Discharge Plan
Departure
Patient Disposition: Admit
Date of Disposition: 03/06/24
Time of Disposition: 14:53
Admit to: Med/Surg
Presentation/result/management discussed w/ accepting MD/DO: Hospitalist
Patient with high blood pressure during this ER visit?: No
Condition: Good
Covid-19: Negative COVID-19
Discharge Problem:
Generalized weakness, Hyponatremia, UTI (urinary tract infection)
Prescriptions:
No Action
metformin 1,000 MG tablet
1,000 mg PO BID
hydroxyurea 500 mg capsule
500 mg PO MOTUWETHFRSA
valsartan 320 mg tablet
320 mg PO DAILY
rosuvastatin 20 mg tablet
20 mg PO DAILY
metoprolol succinate 100 MG tablet extended release 24 hr
100 mg PO DAILY
Fiasp FlexTouch U-100 Insulin 100 unit/mL (3 mL) Insulin Pen
6 unit SC AC
calcium carbonate 500 mg calcium (1,250 mg) Tablet
500 mg PO DAILY
magnesium oxide 500 mg magnesium Tablet
1,000 mg PO DAILY
aspirin 81 MG tablet,chewable
81 mg PO DAILY
lidocaine 4 % Adhesive Patch,Medicated
1 patch topical DAILY Qty: 30 0RF
clopidogrel 75 mg Tablet
75 mg PO DAILY Qty: 0 0RF
nifedipine 60 mg Tablet Extended Release
60 mg PO DAILY Qty: 0 0RF
insulin glargine [Basaglar KwikPen U-100 Insulin] 100 unit/mL (3 mL) Insulin Pen
22 unit SC HS Qty: 0 0RF
Referrals:
Max Choudhury MD [Family Provider] -
Interventions
Interventions:
*Risk Screen - Suicide Last Done: 03/06/24 12:05
*General Assessment Last Done: 03/06/24 12:05
*Neglect/Abuse Screening Last Done: 03/06/24 12:05
*ED COVID-19 Vaccine History Last Done: 03/06/24 12:05
ED- Cardiac Assessment Last Done: 03/06/24 12:02
ED- Neurological Assessment Last Done: 03/06/24 12:02
ED- Pulmonary Assessment Last Done: 03/06/24 12:02
Discharge Date and Time
Print Language: RUSSIAN
[2024-03-06] MEDS: NSS 500 IV (13:39)
[2024-03-06 13:53] LABS: Urine Albumin Negative (Neg - Trace); Urine Bilirubin Negative (Negative); Urine Character Clear (Clear); Urine Color Yellow; Urine Glucose Negative (Negative); Urine Ketone Negative (Negative); Urine Leukocyte 2+ (Negative); Urine Nitrite Positive (Negative); Urine Occult Blood Trace (Negative); Urine Urobilinogen Negative (Neg - 1+)
[2024-03-06 14:12] LABS: COVID-19 Antigen Negative (Negative)
[2024-03-06 14:14] LABS: Urine Bacteria Moderate (Negative); Urine Red Blood Cell 0-2 /HPF (0-2); Urine White Cell 16-20 /HPF (0-5)
[2024-03-06 14:16] LABS: Urine Squamous Cell 16-20 /LPF (Few)
[2024-03-06] MEDS: ROCEPHIN 1000 MG IV (15:04)
--- NOTE | 2024-03-06 16:32 | HPS.HSE ---
Family Physician
-
Family Physician: Max Choudhury
Chief Complaint
-
weakness
History of Present Illness
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
weakness upon waking up this morning. Feels fatigued. She had severe diarrhea for the past 2 days but no diarrhea today. Denies any abdominal pain or vomiting. Denies any urinary symptoms. Denies any fevers or chills or cough, headache or
blurry vision. Denies any focal weakness, numbness or tingling, or vertigo.
She checked her blood pressure this morning and it was lower than normal.
She denies smoking or alcohol use at this time.
Medical History
Past Medical History
Past Medical History: Reports Other (CVA, hyponatremia, diabetes, hypertension, hyperlipidemia, right bundle branch block, essential thrombocytosis, prior left-sided Li's palsy)
Past Surgical History: Reports Other (l (Hysterectomy))
Social History
Tobacco: Non-smoker
Alcohol: None
Drug: None
Family History
Family History: Not pertinent
Allergies / Home Medications
Allergies reflects when Allergies were last updated in [facility].
Home Medications with original date entered in [facility]
Allergy/Medication List:
Allergies
Allergy/AdvReac Type Severity Reaction Status Date / Time
No Known Allergies Allergy Verified 01/06/24 09:28
Home Medications
metformin 1,000 mg tablet 1,000 mg PO BID Diabetes 06/03/19
hydroxyurea 500 mg capsule 500 mg PO MOTUWETHFRSA hematology 05/01/22
metoprolol succinate 100 mg tablet,extended release 24 hr 100 mg PO DAILY Blood pressure 05/01/22
rosuvastatin 20 mg tablet 20 mg PO DAILY High cholesterol 05/01/22
valsartan 320 mg tablet 320 mg PO DAILY Blood pressure 05/01/22
calcium carbonate 500 mg PO DAILY Supplement 01/04/24
insulin aspart (niacinamide)(U-100) 100 unit/mL(3 mL) subcutaneous pen (Fiasp FlexTouch U-100 Insulin) 7 unit SC AC Diabetes 01/04/24
magnesium oxide 1,000 mg PO DAILY Electrolyte Repletion 01/04/24
clopidogrel 75 mg tablet 75 mg PO DAILY #0 tabs 01/12/24
nifedipine 60 mg tablet,extended release 60 mg PO DAILY #0 tabs 01/12/24
insulin glargine 100 unit/mL (3 mL) subcutaneous pen (Basaglar KwikPen U-100 Insulin) 15 unit SC HS Diabetes 03/06/24
Review of Systems
-
History Source: Patient
A 12 point ROS was completed and negative except as noted: Yes
Constitutional: Reports No Symptoms
EENT: Reports No Symptoms
Respiratory: Reports No Symptoms
Cardiac: Reports No Symptoms
Abdomen/GI: Reports See HPI
: Reports No Symptoms
Musculoskeletal: Reports No Symptoms
Skin: Reports No Symptoms
Neurological: Reports No Symptoms
Endocrine: Reports No Symptoms
Hematologic/Lymphatic: Reports No Symptoms
Psych: Reports No Symptoms
Physical Exam
Vital Signs
Vital Signs
Temp Pulse Resp BP Pulse Ox
98.2 F 81 20 115/61 94
03/06/24 12:01 03/06/24 15:45 03/06/24 16:00 03/06/24 15:00 03/06/24 16:00
Physical Exam
General: Well Developed, Well Nourished and No Apparent Distress
HEENT: NormoCephalic, Moist mucous membranes and Atraumatic
Respiratory: Clear
Cardiac: S1/S2 and Regular Rhythm; No Murmur or Rub
GI: Soft, Non Tender, Non Distended and Normal Bowel Sounds; No Organomegaly
Rectal: Deferred by Provider
Musculoskeletal: No Clubbing, No Cyanosis and No Edema
Skin: No Rash
Neuro: Nonfocal/grossly intact
Laboratory Results
-
03/06/24 12:04
03/06/24 12:04
Laboratory Results
Total Bilirubin 0.5 mg/dl (0.2-1.3) 03/06/24 12:04
AST 28 U/L (14-36) 03/06/24 12:04
ALT 16 U/L (0-35) 03/06/24 12:04
Alkaline Phosphatase 31 U/L (38-126) L 03/06/24 12:04
Troponin I < 0.012 ng/ml 03/06/24 12:04
Data Reviewed
-
Lab Data: Labs Reviewed by me
Old Records: Reviewed
Impression/Plan
-
IMPRESSION:
PLAN:
# Weakness secondary to volume losses from recent diarrhea/possible urinary tract infection
-No further diarrhea, check stool studies if continues
-Urinalysis shows positive nitrates, positive leukocyte esterase, 16-20 WBC
-Check urine culture
-IV fluids given
-Ceftriaxone
# Mild hyponatremia from GI losses
-Sodium 129 from 131 baseline
-Monitor with fluids
# Mild hyperkalemia secondary to valsartan
-Hold valsartan
History of CVA
-Continue Plavix
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
History of chronic right shoulder injury
Type 2 diabetes
-Continue 15 units Lantus
-Hold Premeal insulin
-Hold metformin
-Insulin sliding scale
Essential hypertension
-Continue metoprolol
-Continue nifedipine
-Hold valsartan
Right bundle branch block
Hyperlipidemia
-Continue statin
Essential thrombocytosis
-Continue hydroxyurea
DNR/DNI
DVT prophylaxis-heparin
Diabetic diet
--- NOTE | 2024-03-06 19:30 | PTCARENOTE ---
no delay received. pt pulled from stretcher to rm [id number]. aaox3. vss. plan of care updated. denies diarrhea for today. pure wic in place. pt urinating yellow urine. call lopez in reach. will monitor.
[2024-03-06] MEDS: HEPARIN 5000 UNITS SC (20:18)
[2024-03-06] MEDS: LANTUS 0.15 UNITS SC (22:49)
[2024-03-06 22:54] LABS: Glucose - Point of Care 222 mg/dl (70-99)
[2024-03-07 06:51] LABS: % Basophils 0.6 % (0-2); % Eosinophils 0.6 % (0-6); % Immature Granulocytes 0.2 % (0-0.5); % Lymphocytes 25.3 % (20.5-51.1); % Monocytes 9.5 % (1.7-9.3); % Neutrophils 63.8 % (42.2-75.2); Absolute Lymphocytes 1.7 10^3/uL (1.2-3.4); Absolute Monocytes 0.6 10^3/uL (0.1-0.6); Absolute Neutrophils 4.2 10^3/uL (1.4-6.5); Hematocrit 32.9 % (37.0-47.0); Hemoglobin 10.8 g/dL (12.0-16.0); Mean Corp Hgb Conc. 32.8 g/dL (33.0-37.0); Mean Corpuscular Hgb 26.7 pg (27.0-31.0); Mean Corpuscular Volume 81.4 fL (81.0-99.0); Mean Platelet Volume 9.8 fL (7.4-10.4); Nucleated Red Blood Cells % 0 %; Platelet Count 308 10^3/uL (130-400); Red Blood Cell Count 4.04 10^6/uL (4.20-5.40); Red Cell Dist. Width 19.6 % (11.5-14.5); White Blood Cell Count 6.6 10^3/uL (4.8-10.8)
[2024-03-07 07:15] VITALS: BP 144/73
[2024-03-07 07:19] LABS: ALT (SGPT) 11 U/L (0-35); AST (SGOT) 16 U/L (14-36); Albumin 3.7 g/dl (3.5-5.0); Alkaline Phosphatase 39 U/L (38-126); Blood Urea Nitrogen 11 mg/dl (7-17); Calcium 8.6 mg/dl (8.4-10.2); Carbon Dioxide 23 mmol/L (22-30); Chloride 105 mmol/L (98-107); Estimated Creatinine Clearance 52 ml/min; Glucose 149 mg/dl (70-99); Potassium 4.5 mmol/L (3.5-5.1); Sodium 134 mmol/L (135-145); Total Bilirubin 0.4 mg/dl (0.2-1.3); Total Protein 5.7 g/dl (6.3-8.2); eGFR > 60.00
[2024-03-07 07:46] LABS: Glucose - Point of Care 180 mg/dl (70-99)
[2024-03-07] MEDS: PROCARDIA XL (EXTENDED RELEASE) 60 MG PO (08:20)
[2024-03-07] MEDS: MAGNESIUM OXIDE 1000 MG PO (08:20)
[2024-03-07] MEDS: CRESTOR 20 MG PO (08:21)
[2024-03-07] MEDS: OSCAL CAL 500 500 MG PO (08:21)
[2024-03-07] MEDS: PLAVIX 75 MG PO (08:21)
[2024-03-07] MEDS: TOPROL XL 100 MG PO (08:21)
[2024-03-07] MEDS: HEPARIN 5000 UNITS SC ×2 (08:21→20:24)
--- NOTE | 2024-03-07 08:36 | W.PN.HOSP.TC ---
Today's Communication/Plan
-
IV fluids. IV antibiotics.
Assessment / Plan
Assessment / Plan
Physical exam:
General: Acute and chronically ill
HEENT: Normocephalic, Atraumatic and Moist Mucous Membranes
Respiratory: Clear to Auscultation; Negative Wheezes, Rales or Rhonchi
Cardiac: Regular Rhythm and S1/S2
GI: Soft, Nontender and Nondistended
Musculoskeletal: No Clubbing, No Cyanosis and No Edema
Neuro: Awake, Alert and Oriented
Psych: Calm
A/P:
# Weakness secondary to volume losses from recent diarrhea/possible urinary tract infection
-No further diarrhea, check stool studies if continues
-Urinalysis shows positive nitrates, positive leukocyte esterase, 16-20 WBC
-Check urine culture--> urine culture growing gram-negative rods.
-IV fluids given--> restart IV fluids at a low rate
-Ceftriaxone to continue and adjust depending on sensitivities
-PT OT eval
# Mild hyponatremia from GI losses
-Sodium 129 from 131 baseline--> sodium up to 134 today
-Monitor with fluids
# Mild hyperkalemia secondary to valsartan
-Potassium back to normal
-Continue hold valsartan and consider restart tomorrow depending on BMP
History of CVA
-Continue Plavix
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
History of chronic right shoulder injury
Type 2 diabetes
-Continue 15 units Lantus
-Hold Premeal insulin
-Hold metformin
-Insulin sliding scale
Essential hypertension
-Continue metoprolol
-Continue nifedipine
-Hold valsartan
Right bundle branch block
Hyperlipidemia
-Continue statin
Essential thrombocytosis
-Continue hydroxyurea
DNR/DNI
DVT prophylaxis-heparin
Diabetic diet
Anticipated Discharge: 24 - 48 hours
Subjective/Interval History
-
Date of Service: March 07, 2024
Overall feels slightly better. Less diarrhea. No nausea or vomiting. Afebrile
Objective Data
-
Labs:
Laboratory Results
03/07/24
04:54
WBC 6.6
Hgb 10.8 L
Hct 32.9 L
Plt Count 308
Sodium 134 L
Potassium 4.5
Chloride 105
Carbon Dioxide 23
BUN 11
Creatinine 0.7
Glucose 149 H
Calcium 8.6
Total Bilirubin 0.4
AST 16
ALT 11
Alkaline Phosphatase 39
Vital Signs:
Vital Signs
Temp Pulse Resp BP Pulse Ox
97.6 F 76 16 144/73 98
03/07/24 07:15 03/07/24 07:15 03/07/24 07:15 03/07/24 07:15 03/07/24 07:15
I&O
03/06/24 03/07/24 03/08/24
06:59 06:59 06:59
Intake Total 480 / 480
Output Total 1450 / 1450
Balance -970 / -970
[2024-03-07 09:00] LABS: Glycohemoglobin (HgbA1c) 7.7 % (4.0-5.6)
[2024-03-07] MEDS: NSS 1000 IV ×2 (09:42→21:08)
[2024-03-07] MEDS: NOVOLOG FLEXPEN-LOW RESISTANCE 1 UNITS SC (09:43)
[2024-03-07] MEDS: HYDREA 500 MG PO (09:43)
[2024-03-07 11:50] LABS: Glucose - Point of Care 254 mg/dl (70-99)
[2024-03-07] MEDS: NOVOLOG FLEXPEN-LOW RESISTANCE 3 UNITS SC ×2 (12:57→16:51)
--- NOTE | 2024-03-07 15:11 | CM ---
Initial assessment completed with patient who lives alone in a 1 story home with basement and 2 steps to enter. Patient has and uses a RW and SPC. She has HH services with [facility] for VN, PT/OT. [employer] patient was independent and drove. No history of
Psychiatric hospitalizations. Pharmacy is [facility] in [place] and PCP is Dr. Max Choudhury. Discharge Plan of Care: Anticipate home with resumption of [facility] VN, PT/OT. A friend will be staying with patient for a few hours daily after discharge.
[2024-03-07 15:15] VITALS: BP 142/60
[2024-03-07] MEDS: STERILE WATER FOR INJECTION 10 ML IV (16:15)
[2024-03-07] MEDS: ROCEPHIN 1000 MG IV (16:15)
[2024-03-07 16:49] LABS: Glucose - Point of Care 234 mg/dl (70-99)
[2024-03-07 21:55] LABS: Glucose - Point of Care 182 mg/dl (70-99)
[2024-03-07] MEDS: LANTUS 0.15 UNITS SC (22:19)
[2024-03-07 23:28] VITALS: BP 159/77
[2024-03-08 07:15] VITALS: BP 165/77
[2024-03-08 07:33] LABS: % Basophils 0.8 % (0-2); % Eosinophils 1.3 % (0-6); % Immature Granulocytes 0.5 % (0-0.5); % Lymphocytes 29.5 % (20.5-51.1); % Monocytes 10.5 % (1.7-9.3); % Neutrophils 57.4 % (42.2-75.2); Absolute Basophils 0.1 10^3/uL (0-0.2); Absolute Eosinophils 0.1 10^3/uL (0-0.7); Absolute Lymphocytes 1.8 10^3/uL (1.2-3.4); Absolute Monocytes 0.7 10^3/uL (0.1-0.6); Absolute Neutrophils 3.6 10^3/uL (1.4-6.5); Hematocrit 33.9 % (37.0-47.0); Hemoglobin 11.1 g/dL (12.0-16.0); Mean Corp Hgb Conc. 32.7 g/dL (33.0-37.0); Mean Corpuscular Hgb 26.7 pg (27.0-31.0); Mean Corpuscular Volume 81.5 fL (81.0-99.0); Mean Platelet Volume 9.4 fL (7.4-10.4); Nucleated Red Blood Cells % 0 %; Platelet Count 285 10^3/uL (130-400); Red Blood Cell Count 4.16 10^6/uL (4.20-5.40); Red Cell Dist. Width 19.8 % (11.5-14.5); White Blood Cell Count 6.2 10^3/uL (4.8-10.8)
[2024-03-08 07:43] LABS: Glucose - Point of Care 178 mg/dl (70-99)
[2024-03-08 08:01] LABS: Blood Urea Nitrogen 12 mg/dl (7-17); Calcium 8.9 mg/dl (8.4-10.2); Carbon Dioxide 21 mmol/L (22-30); Chloride 106 mmol/L (98-107); Estimated Creatinine Clearance 52 ml/min; Glucose 171 mg/dl (70-99); Potassium 4.3 mmol/L (3.5-5.1); Sodium 134 mmol/L (135-145); eGFR > 60.00
[2024-03-08] MEDS: NOVOLOG FLEXPEN-LOW RESISTANCE 1 UNITS SC ×2 (08:33→17:20)
[2024-03-08] MEDS: HEPARIN 5000 UNITS SC ×2 (08:35→19:46)
[2024-03-08] MEDS: PROCARDIA XL (EXTENDED RELEASE) 60 MG PO (08:36)
[2024-03-08] MEDS: PLAVIX 75 MG PO (08:36)
[2024-03-08] MEDS: OSCAL CAL 500 500 MG PO (08:36)
[2024-03-08] MEDS: CRESTOR 20 MG PO (08:37)
[2024-03-08] MEDS: TOPROL XL 100 MG PO (08:37)
[2024-03-08] MEDS: MAGNESIUM OXIDE 1000 MG PO (08:37)
[2024-03-08] MEDS: HYDREA 500 MG PO (08:39)
[2024-03-08] MEDS: NSS 1000 IV (08:40)
--- NOTE | 2024-03-08 08:40 | W.PN.HOSP.TC ---
Today's Communication/Plan
-
Change IV antibiotics.
Assessment / Plan
Assessment / Plan
Physical exam:
General: Acute and chronically ill
HEENT: Normocephalic, Atraumatic and Moist Mucous Membranes
Respiratory: Clear to Auscultation; Negative Wheezes, Rales or Rhonchi
Cardiac: Regular Rhythm and S1/S2
GI: Soft, Nontender and Nondistended
Musculoskeletal: No Clubbing, No Cyanosis and No Edema
Neuro: Awake, Alert and Oriented
Psych: Calm
A/P:
# Weakness secondary to volume losses from recent diarrhea/possible urinary tract infection
-No further diarrhea, check stool studies if continues
-Urinalysis shows positive nitrates, positive leukocyte esterase, 16-20 WBC
-Check urine culture--> urine culture growing Pseudomonas.
-Stop IV fluids
-Ceftriaxone changed to IV cefepime
-PT OT eval
# Mild hyponatremia from GI losses
-Sodium 129 from 131 baseline--> sodium up to 134 today
-Monitor with fluids
# Mild hyperkalemia secondary to valsartan
-Potassium back to normal
-Restart valsartan and monitor potassium
History of CVA
-Continue Plavix
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
History of chronic right shoulder injury
Type 2 diabetes
-Continue 15 units Lantus
-Restart metformin
-Insulin sliding scale
Essential hypertension
-Continue metoprolol
-Continue nifedipine
-Restart valsartan
Right bundle branch block
Hyperlipidemia
-Continue statin
Essential thrombocytosis
-Continue hydroxyurea
DNR/DNI
DVT prophylaxis-heparin
Diabetic diet
Anticipated Discharge: 24 - 48 hours
Subjective/Interval History
-
Date of Service: March 08, 2024
Patient denies any nausea or vomiting. Afebrile
Objective Data
-
Labs:
Laboratory Results
03/08/24
06:38
WBC 6.2
Hgb 11.1 L
Hct 33.9 L
Plt Count 285
Sodium 134 L
Potassium 4.3
Chloride 106
Carbon Dioxide 21 L
BUN 12
Creatinine 0.7
Glucose 171 H
Calcium 8.9
Vital Signs:
Vital Signs
Temp Pulse Resp BP Pulse Ox
97.9 F 74 18 165/77 97
03/08/24 07:15 03/08/24 07:15 03/08/24 07:15 03/08/24 07:15 03/08/24 07:15
I&O
03/07/24 03/08/24 03/09/24
06:59 06:59 06:59
Intake Total 480 / 480 2280 / 2280
Output Total 1450 / 1450 1150 / 1150
Balance -970 / -970 1130 / 1130
[2024-03-08 12:54] LABS: Glucose - Point of Care 231 mg/dl (70-99)
[2024-03-08] MEDS: NOVOLOG FLEXPEN-LOW RESISTANCE 2 UNITS SC (13:22)
[2024-03-08] MEDS: DIOVAN 320 MG PO (13:22)
[2024-03-08] MEDS: GLUCOPHAGE 1000 MG PO ×2 (13:28→17:20)
[2024-03-08] MEDS: MAXIPIME 1000 MG IV (13:28)
[2024-03-08] MEDS: STERILE WATER FOR INJECTION 10 ML IV (13:28)
[2024-03-08 14:20] VITALS: BP 175/96; PULSE 99; O2SAT 98
[2024-03-08 14:36] VITALS: BP 175/96
--- NOTE | 2024-03-08 14:51 | CM ---
Discharge Plan of Care: Home with [facility] VN, PT/OT services. Referral forwarded.
[2024-03-08 15:15] VITALS: BP 143/69
[2024-03-08 17:06] LABS: Glucose - Point of Care 196 mg/dl (70-99)
--- NOTE | 2024-03-08 21:23 | PTCARENOTE ---
Pt rec'd at change of shift in chair with legs resting on top of her walker. Pt stated she had just gotten off phone with son and thinks the Plavix she is on is causing her to become 'suspicious'. pt went on to say that after talking with son she
feels better because she has 'enough oxygen flowing through her brain'. Pt currently lying in bed. call lopez within reach.
[2024-03-08 21:27] LABS: Glucose - Point of Care 192 mg/dl (70-99)
[2024-03-08] MEDS: LANTUS 0.15 UNITS SC (22:25)
[2024-03-08 22:55] VITALS: BP 162/82
[2024-03-09] MEDS: MAXIPIME 1000 MG IV ×3 (00:34→23:00)
[2024-03-09] MEDS: STERILE WATER FOR INJECTION 10 ML IV ×3 (00:35→23:00)
[2024-03-09 07:26] LABS: Glucose - Point of Care 187 mg/dl (70-99)
[2024-03-09 07:28] VITALS: BP 171/80
[2024-03-09] MEDS: CRESTOR 20 MG PO (07:57)
[2024-03-09] MEDS: GLUCOPHAGE 1000 MG PO ×2 (07:57→17:12)
[2024-03-09] MEDS: NOVOLOG FLEXPEN-LOW RESISTANCE 1 UNITS SC (07:57)
[2024-03-09] MEDS: OSCAL CAL 500 500 MG PO (07:57)
[2024-03-09] MEDS: MAGNESIUM OXIDE 1000 MG PO (07:58)
[2024-03-09] MEDS: TOPROL XL 100 MG PO (07:58)
[2024-03-09] MEDS: PROCARDIA XL (EXTENDED RELEASE) 60 MG PO (07:58)
[2024-03-09] MEDS: PLAVIX 75 MG PO (07:59)
[2024-03-09] MEDS: HEPARIN 5000 UNITS SC ×2 (07:59→19:43)
[2024-03-09] MEDS: DIOVAN 320 MG PO (07:59)
[2024-03-09] MEDS: HYDREA 500 MG PO (08:01)
[2024-03-09 08:04] LABS: % Basophils 0.5 % (0-2); % Eosinophils 0.9 % (0-6); % Immature Granulocytes 0.2 % (0-0.5); % Lymphocytes 26.8 % (20.5-51.1); % Monocytes 8.9 % (1.7-9.3); % Neutrophils 62.7 % (42.2-75.2); Absolute Eosinophils 0.1 10^3/uL (0-0.7); Absolute Lymphocytes 1.6 10^3/uL (1.2-3.4); Absolute Monocytes 0.5 10^3/uL (0.1-0.6); Absolute Neutrophils 3.7 10^3/uL (1.4-6.5); Hematocrit 35.2 % (37.0-47.0); Hemoglobin 11.5 g/dL (12.0-16.0); Mean Corp Hgb Conc. 32.7 g/dL (33.0-37.0); Mean Corpuscular Hgb 27.4 pg (27.0-31.0); Mean Platelet Volume 9.2 fL (7.4-10.4); Nucleated Red Blood Cells % 0 %; Platelet Count 272 10^3/uL (130-400); Red Blood Cell Count 4.19 10^6/uL (4.20-5.40); Red Cell Dist. Width 19.5 % (11.5-14.5); White Blood Cell Count 5.8 10^3/uL (4.8-10.8)
[2024-03-09 08:28] LABS: Blood Urea Nitrogen 15 mg/dl (7-17); Calcium 9.5 mg/dl (8.4-10.2); Carbon Dioxide 21 mmol/L (22-30); Chloride 104 mmol/L (98-107); Estimated Creatinine Clearance 52 ml/min; Glucose 193 mg/dl (70-99); Potassium 4.4 mmol/L (3.5-5.1); Sodium 134 mmol/L (135-145); eGFR > 60.00
--- NOTE | 2024-03-09 09:30 | W.PN.HOSP.TC ---
Today's Communication/Plan
-
Continue IV antibiotics. Increase insulin sliding scale.
Assessment / Plan
Assessment / Plan
Physical exam:
General: Acute and chronically ill
HEENT: Normocephalic, Atraumatic and Moist Mucous Membranes
Respiratory: Clear to Auscultation; Negative Wheezes, Rales or Rhonchi
Cardiac: Regular Rhythm and S1/S2
GI: Soft, Nontender and Nondistended
Musculoskeletal: No Clubbing, No Cyanosis and No Edema
Neuro: Awake, Alert and Oriented
Psych: Calm
A/P:
# Weakness secondary to volume losses from recent diarrhea/possible urinary tract infection
-No further diarrhea, check stool studies if continues
-Urinalysis shows positive nitrates, positive leukocyte esterase, 16-20 WBC
-Check urine culture--> urine culture growing Pseudomonas.
-Stop IV fluids
-Ceftriaxone changed to IV cefepime and will be continued for at least 3 days
-PT OT eval
# Mild hyponatremia from GI losses
-Sodium 129 from 131 baseline--> sodium up to 134 today
-Monitor with fluids
# Mild hyperkalemia secondary to valsartan
-Potassium back to normal
-Restarted valsartan and potassium remains normal.
History of CVA
-Continue Plavix
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
History of chronic right shoulder injury
Type 2 diabetes
-Continue 15 units Lantus
-Restarted metformin
-Insulin sliding scale but increase to moderate coverage
Essential hypertension
-Continue metoprolol
-Continue nifedipine
-Restarted valsartan
Right bundle branch block
Hyperlipidemia
-Continue statin
Essential thrombocytosis
-Continue hydroxyurea
DNR/DNI
DVT prophylaxis-heparin
Diabetic diet
Anticipated Discharge: 24 - 48 hours
Subjective/Interval History
-
Date of Service: March 09, 2024
Patient did not sleep well last night but does not want any medications to help her sleep. Afebrile
Objective Data
-
Labs:
Laboratory Results
03/09/24
07:24
WBC 5.8
Hgb 11.5 L
Hct 35.2 L
Plt Count 272
Sodium 134 L
Potassium 4.4
Chloride 104
Carbon Dioxide 21 L
BUN 15
Creatinine 0.7
Glucose 193 H
Calcium 9.5
Vital Signs:
Vital Signs
Temp Pulse Resp BP Pulse Ox
97.5 F 76 20 171/80 98
03/09/24 07:28 03/09/24 07:59 03/09/24 07:28 03/09/24 07:59 03/09/24 07:28
I&O
03/08/24 03/09/24 03/10/24
06:59 06:59 06:59
Intake Total 2280 / 2280 1934
Output Total 1150 / 1150
Balance 1130 / 1130 1934
[2024-03-09 10:20] VITALS: BP 118/65
[2024-03-09 11:42] LABS: Glucose - Point of Care 212 mg/dl (70-99)
[2024-03-09] MEDS: NOVOLOG FLEXPEN-LOW RESISTANCE 2 UNITS SC (12:47)
[2024-03-09 15:10] VITALS: BP 147/69
[2024-03-09 16:46] LABS: Glucose - Point of Care 175 mg/dl (70-99)
[2024-03-09] MEDS: NOVOLOG FLEXPEN-MODERATE RESISTANCE 1 UNITS SC (17:11)
[2024-03-09] MEDS: NOVOLOG FLEXPEN-MODERATE RESISTANCE SC (17:11)
[2024-03-09 21:17] LABS: Glucose - Point of Care 222 mg/dl (70-99)
[2024-03-09] MEDS: LANTUS 0.15 UNITS SC (21:18)
[2024-03-09 23:04] VITALS: BP 161/82
[2024-03-10 07:15] VITALS: BP 156/83
[2024-03-10 07:49] LABS: Glucose - Point of Care 194 mg/dl (70-99)
--- NOTE | 2024-03-10 08:42 | W.PN.HOSP.TC ---
Today's Communication/Plan
-
Antibiotics
Assessment / Plan
Assessment / Plan
Physical exam:
General: Acute and chronically ill
HEENT: Normocephalic, Atraumatic and Moist Mucous Membranes
Respiratory: Clear to Auscultation; Negative Wheezes, Rales or Rhonchi
Cardiac: Regular Rhythm and S1/S2
GI: Soft, Nontender and Nondistended
Musculoskeletal: No Clubbing, No Cyanosis and No Edema
Neuro: Awake, Alert and Oriented
Psych: Calm
A/P:
# UTI
-Urinalysis shows positive nitrates, positive leukocyte esterase, 16-20 WBC
-Check urine culture--> urine culture growing Pseudomonas.
-Cefepime for 3 to 5 days
-PT OT eval recommended rehab but patient wants to go home
-US kidney unremarkable
# Diarrhea
Resolved
# Mild hyponatremia from GI losses
-Sodium 129 from 131 baseline--> sodium up to 134
# Mild hyperkalemia secondary to valsartan
-Potassium back to normal
-Restarted valsartan and potassium remained normal.
History of CVA
-Continue Plavix
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
History of chronic right shoulder injury
Type 2 diabetes
-Continue 15 units Lantus
-Restarted metformin
-Insulin sliding scale, moderate coverage
Essential hypertension
-Continue metoprolol
-Continue nifedipine
-Restarted valsartan
Right bundle branch block
Hyperlipidemia
-Continue statin
Essential thrombocytosis
-Continue hydroxyurea
DNR/DNI
DVT prophylaxis-heparin
Diabetic diet
Anticipated Discharge: 24 - 48 hours
Subjective/Interval History
-
Date of Service: March 10, 2024
patient feels better overall, no n/v. No abd pain. No fever
Objective Data
-
Vital Signs:
Vital Signs
Temp Pulse Resp BP Pulse Ox
97.8 F 72 18 156/83 99
03/10/24 07:15 03/10/24 07:15 03/10/24 07:15 03/10/24 07:15 03/10/24 07:15
I&O
03/09/24 03/10/24 03/11/24
06:59 06:59 06:59
Intake Total 1934 2340 / 2340
Balance 1934 2340 / 2340
[2024-03-10] MEDS: NOVOLOG FLEXPEN-MODERATE RESISTANCE 1 UNITS SC ×2 (09:11→18:33)
[2024-03-10] MEDS: DIOVAN 320 MG PO (09:12)
[2024-03-10] MEDS: MAGNESIUM OXIDE 1000 MG PO (09:12)
[2024-03-10] MEDS: CRESTOR 20 MG PO (09:12)
[2024-03-10] MEDS: HEPARIN 5000 UNITS SC ×2 (09:13→21:30)
[2024-03-10] MEDS: GLUCOPHAGE 1000 MG PO ×2 (09:14→16:20)
[2024-03-10] MEDS: PLAVIX 75 MG PO (09:14)
[2024-03-10] MEDS: TOPROL XL 100 MG PO (09:14)
[2024-03-10] MEDS: PROCARDIA XL (EXTENDED RELEASE) 60 MG PO (09:14)
[2024-03-10] MEDS: HYDREA 500 MG PO (11:04)
[2024-03-10] MEDS: OSCAL CAL 500 500 MG PO (11:04)
[2024-03-10 11:47] LABS: Glucose - Point of Care 288 mg/dl (70-99)
[2024-03-10] MEDS: FLUSH (NSS) 2 FLUSH IV (11:51)
[2024-03-10] MEDS: NOVOLOG FLEXPEN-MODERATE RESISTANCE 5 UNITS SC (11:51)
[2024-03-10] MEDS: STERILE WATER FOR INJECTION 10 ML IV ×2 (11:52→23:58)
[2024-03-10] MEDS: MAXIPIME 1000 MG IV ×2 (11:52→23:59)
[2024-03-10 15:15] VITALS: BP 131/69
[2024-03-10] MEDS: TUMS 1 TABLET PO (16:20)
--- NOTE | 2024-03-10 17:30 | PTCARENOTE ---
Pt c/o having a sour stomach mid afternoon. After taking her glucophage and tums pt had vomited in bathroom before she ate dinner. Possibly this affected her stomach yesterday. She then ate dinner and had no other problems. Will cont to monitor.
[2024-03-10 18:26] LABS: Glucose - Point of Care 171 mg/dl (70-99)
[2024-03-10 21:02] LABS: Glucose - Point of Care 158 mg/dl (70-99)
[2024-03-10] MEDS: LANTUS 0.15 UNITS SC (21:31)
[2024-03-10 23:00] VITALS: BP 151/84
[2024-03-11 07:20] VITALS: BP 154/81
[2024-03-11] MEDS: GLUCOPHAGE 1000 MG PO (08:04)
[2024-03-11] MEDS: MAGNESIUM OXIDE 1000 MG PO (08:04)
[2024-03-11] MEDS: DIOVAN 320 MG PO (08:04)
[2024-03-11] MEDS: OSCAL CAL 500 500 MG PO (08:04)
[2024-03-11] MEDS: PROCARDIA XL (EXTENDED RELEASE) 60 MG PO (08:04)
[2024-03-11] MEDS: HEPARIN 5000 UNITS SC (08:05)
[2024-03-11] MEDS: TOPROL XL 100 MG PO (08:05)
[2024-03-11] MEDS: PLAVIX 75 MG PO (08:05)
[2024-03-11] MEDS: CRESTOR 20 MG PO (08:05)
[2024-03-11 08:25] LABS: Glucose - Point of Care 190 mg/dl (70-99)
--- NOTE | 2024-03-11 08:39 | W.PN.HOSP.TC ---
Today's Communication/Plan
-
Discharge planning today
Assessment / Plan
Assessment / Plan
Physical exam:
General: No acute distress
HEENT: Normocephalic, Atraumatic and Moist Mucous Membranes
Respiratory: Clear to Auscultation; Negative Wheezes, Rales or Rhonchi
Cardiac: Regular Rhythm and S1/S2
GI: Soft, Nontender and Nondistended
Musculoskeletal: No Clubbing, No Cyanosis and No Edema
Neuro: Awake, Alert and Oriented
Psych: Calm
A/P:
# UTI
-Urinalysis shows positive nitrates, positive leukocyte esterase, 16-20 WBC
-Check urine culture--> urine culture growing Pseudomonas.
-Cefepime to finish today
-PT OT eval recommended rehab but patient wants to go home
-US kidney unremarkable
-Plan to discharge today
# Diarrhea
Resolved
# Mild hyponatremia from GI losses
-Sodium 129 from 131 baseline--> sodium up to 134
# Mild hyperkalemia secondary to valsartan
-Potassium back to normal
-Restarted valsartan and potassium remained normal.
History of CVA
-Continue Plavix
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
History of chronic right shoulder injury
Type 2 diabetes
-Continue 15 units Lantus
-Restarted metformin
-Insulin sliding scale, moderate coverage
Essential hypertension
-Continue metoprolol
-Continue nifedipine
-Restarted valsartan
Right bundle branch block
Hyperlipidemia
-Continue statin
Essential thrombocytosis
-Continue hydroxyurea
DNR/DNI
DVT prophylaxis-heparin
Diabetic diet
Anticipated Discharge: Today
Subjective/Interval History
-
Date of Service: March 11, 2024
No new complaint
Objective Data
-
Vital Signs:
Vital Signs
Temp Pulse Resp BP Pulse Ox
97.6 F 75 16 154/81 98
03/11/24 07:20 03/11/24 07:20 03/11/24 07:20 03/11/24 07:20 03/11/24 07:20
I&O
03/10/24 03/11/24 03/12/24
06:59 06:59 06:59
Intake Total 2340 / 2340 930 / 930
Balance 2340 / 2340 930 / 930
[2024-03-11] MEDS: NOVOLOG FLEXPEN-MODERATE RESISTANCE 1 UNITS SC (09:41)
--- NOTE | 2024-03-11 12:15 | W.DCSUMMARY ---
Discharge Summary
Discharge Data
Date of Admission: 03/07/24
Date of Discharge: 03/11/24
-
Pending Results: No
Hospital Course
Patient 83 years old female with history of hypertension, hyperlipidemia, diabetes mellitus, hyponatremia, CVA, presented to the hospital generalized weakness, diarrhea, and found to have urinary tract infection. Patient was treated with IV fluids,
supportive care, and diarrhea resolved (did not require any further workup). Blood cultures remained sterile. Urine cultures positive for Pseudomonas. Ultrasound of the kidneys unremarkable. She was treated with IV cefepime sensitive to
Pseudomonas and completed a 4 days course. Initially with hyponatremia and hyperkalemia but this resolved with hydration and she was placed back on ARB without any problems. Patient feels back to her baseline and remains hemodynamically stable and
afebrile. PT recommended rehab but patient refused. She wants to go home and she feels that she can manage at home. She is cleared to be discharged in stable condition today.
Discharge duration: 35 minutes
Discharge Plan
-
Patient Disposition: Home (Routine Discharge)
Discharge Diagnosis/Procedures: Pseudomonas urinary tract infection. Acute diarrhea.
Diet: Low Cholesterol
Activity: As tolerated
Blood Work: Please PCP to order CBC, BMP within 1 week
Referrals:
Max Choudhury MD [Family Provider] - in less than 1 week
Prescriptions:
Continued
metformin 1,000 MG tablet
1,000 mg PO BID
hydroxyurea 500 mg capsule
500 mg PO MOTUWETHFRSA
valsartan 320 mg tablet
320 mg PO DAILY
rosuvastatin 20 mg tablet
20 mg PO DAILY
metoprolol succinate 100 MG tablet extended release 24 hr
100 mg PO DAILY
Fiasp FlexTouch U-100 Insulin 100 unit/mL (3 mL) Insulin Pen
7 unit SC AC
calcium carbonate 500 mg calcium (1,250 mg) Tablet
500 mg PO DAILY
magnesium oxide 500 mg magnesium Tablet
1,000 mg PO DAILY
clopidogrel 75 mg Tablet
75 mg PO DAILY Qty: 0 0RF
nifedipine 60 mg Tablet Extended Release
60 mg PO DAILY Qty: 0 0RF
insulin glargine [Basaglar KwikPen U-100 Insulin] 100 unit/mL (3 mL) insulin pen
15 unit SC HS
Discharge Orders:
Discharge Patient (As Directed); Ordered 03/11/24
Ordered By: Prosper Winn
Discharge Date and Time
Discharge Date/Time: 03/11/24 13:38
Print Language: LAO
[2024-03-11] MEDS: MAXIPIME 1000 MG IV (12:51)
[2024-03-11] MEDS: STERILE WATER FOR INJECTION 10 ML IV (12:51)
[2024-03-11 12:53] LABS: Glucose - Point of Care 229 mg/dl (70-99)
[2024-03-11] MEDS: FLUSH (NSS) 2 FLUSH IV (12:53)
[2024-03-11] MEDS: NOVOLOG FLEXPEN-MODERATE RESISTANCE 3 UNITS SC (12:54)
[2024-03-11] MEDS: TUMS 2 TABLET PO (12:57)
--- NOTE | 2024-03-11 13:20 | CM ---
Reviewed the chart notes and spoke with the patient at the bedside. IMM signed and placed on chart. The patient is being discharged to home today. Patient's friends in attendance to provide transportation home. CM continues to be available to
patient/family and is monitoring medical plan for needs at discharge.
Plan: Discharge to home today with [facility] services.
--- NOTE | 2024-03-11 16:12 | CHAP ---
Visited Tasneem at 10am. She appreciated being able to share her thoughts. Emotional and spiritual support provided.
== END 2024-03-11 13:38 | disposition home health service (06) | DRG 690 ==
LOC: 2 NORTH 11:46
PROVIDERS: ADMITTING PHYSICIAN Hospitalist; ATTENDING PHYSICIAN Hospitalist; EMERGENCY PHYSICIAN Emergency Medicine; FAMILY PHYSICIAN Internal Medicine Geriatric Medicine
DX: N39.0 Urinary tract infection, site not specified (principal); E87.1 Hypo-osmolality and hyponatremia; R53.1 Weakness; E11.9 Type 2 diabetes mellitus without complications; G51.0 Bell's palsy; E78.5 Hyperlipidemia, unspecified; B96.5 Pseudomonas (aeruginosa) (mallei) (pseudomallei) as the cause of diseases classified elsewhere; R19.7 Diarrhea, unspecified; I45.10 Unspecified right bundle-branch block; D47.3 Essential (hemorrhagic) thrombocythemia; I10 Essential (primary) hypertension; E87.5 Hyperkalemia; Z66 Do not resuscitate; Z79.84 Long term (current) use of oral hypoglycemic drugs; Z79.82 Long term (current) use of aspirin; Z79.4 Long term (current) use of insulin; Z79.02 Long term (current) use of antithrombotics/antiplatelets; Z86.73 Personal history of transient ischemic attack (TIA), and cerebral infarction without residual deficits; Z11.52 Encounter for screening for COVID-19
CPT/HCPCS: 76770; 80048; 80053; 81003; 81015; 82962; 83036; 84484; 85025; 87077; 87086; 87186; 87811; 93005; 96374; 97116; 97162; 97166; 99285

== ENCOUNTER → 2024-04-02 15:00 | Outpatient (REF) | payer MEDICARE, OTHER, SELFPAY ==
[2024-04-02 18:00] LABS: Urine Albumin 1+ (Neg - Trace); Urine Bilirubin Negative (Negative); Urine Character Very Cloudy (Clear); Urine Color Yellow; Urine Glucose 3+ (Negative); Urine Ketone Negative (Negative); Urine Leukocyte 2+ (Negative); Urine Nitrite Positive (Negative); Urine Occult Blood 2+ (Negative); Urine Urobilinogen Negative (Neg - 1+)
[2024-04-02 19:11] LABS: Urine Red Blood Cell >100 /HPF (0-2)
== END ==
LOC: CLAB 15:00
PROVIDERS: ATTENDING PHYSICIAN Internal Medicine Geriatric Medicine
DX: N39.0 Urinary tract infection, site not specified (principal)
CPT/HCPCS: 81003; 81015; 87077; 87086; 87186